=== PATIENT | male | born 1955 | race Caucasian/White ===

== ENCOUNTER 2017-10-05 11:58 | Inpatient (IN) | payer SELFPAY ==
[2017-10-05 12:35] LABS: Actual Bicarbonate (HCO3a) 27.4 mEq/L (22-26); Base Excess (BEa) 4.4 mEq/L (0 (+/-) 2.5); CO2 Tension 35.5 mmHg (35.0-45.0); Calcium, Ionized 1.1 mmol/L (1.12-1.30); Hematocrit-ABG 46.6 % (42.0-52.0); Hemoglobin (Hb) 13.4 g/dL (14.0-18.0); O2 Tension (PaO2) 64.6 mmHg (80.0-100.0); pH, Arterial 7.51 (7.35-7.45)
[2017-10-05 12:36] LABS: Analyzer IN Cardio ER; Puncture Site RRA
[2017-10-05] MEDS ORDERED: Ondansetron HCl/PF 4 MG/2 ML Vial ONE ×2 (12:36→12:55)
--- NOTE | 2017-10-05 12:49 | RAD ---
CHEST ONE VIEW HISTORY: Nausea and vomiting. COMPARISON: Chest one view 12/16/2009. FINDINGS: There are patchy airspace opacities in both lower lobes, worse on the right. No pneumothorax. Cardi ac silhouette and mediastinal contours are within normal limits. Numerous median sternotomy wires. IMPRESSION: Bibasilar pneumonia, worse in the right lower lobe. Follow-up after treatment recommended. POS: [facility]
[2017-10-05 12:51] LABS: Mean Corpuscular HGB CONC 32.1 g/dL (32.0-36.0); Mean Corpuscular Hemoglobin 33.1 pg (27.0-31.0); Mean Platelet Volume 8.5 fL (7.4-10.4); Platelet Count 295 thou/uL (130-400); RBC Distribution Width 11.8 % (11.5-14.5); Red Blood Cell (RBC) Count 4.24 mill/uL (4.70-6.10); White Blood Cell (WBC) Count 11.7 thou/uL (4.8-10.8)
[2017-10-05] MEDS ORDERED: Pantoprazole 40 MG VIAL ONE ×2 (12:55→13:00)
[2017-10-05 12:56] LABS: Band 24 % (5-11); Lymphocytes 18 % (21-51); MDiff Complete? YES; Monocytes 19 % (0-10); Myelocyte 1 % (0-0); Neutrophil 34 % (42-75); PLT Morphology Comment Appears Adequate; Reactive Lymphocytes 4 % (0-10); Toxic Granulation SLIGHT; Vacuoles SLIGHT
[2017-10-05] MEDS ORDERED: Pantoprazole 80 MG, Admixture Fee 1 EACH in Sodium Chloride 0.9% 100 ML IVPB ONE (13:00)
[2017-10-05 13:02] LABS: ALT (SGPT) 153 U/L (8-55); AST (SGOT) 138 U/L (5-34); Albumin 3.3 g/dL (3.4-4.8); Alkaline Phosphatase 87 U/L (40-150); Anion Gap 21 mmol/L (10-20); BUN (Urea Nitrogen) 70 mg/dL (8.4-25.7); Bilirubin, Total 1.8 mg/dL (0.2-1.2); CK (CPK) 21 U/L (30-200); Calc. Creatinine Clearance 0 mL/min (70-130); Calcium 9.9 mg/dL (7.8-10.44); Carbon Dioxide 27 mmol/L (23-31); Chloride 85 mmol/L (98-107); Estimated GFR-MDRD 29; Globulin 3.5 g/dL (2.4-3.5); Glucose 130 mg/dL (80-115); Potassium 3.9 mmol/L (3.5-5.1); Protein, Total 6.8 g/dL (5.8-8.1); Sodium 129 mmol/L (136-145)
[2017-10-05 13:05] LABS: CKMB 0.7 ng/mL (0-6.6); Troponin I 0.029 ng/mL (< 0.028)
[2017-10-05 13:54] LABS: INR-International Normal Ratio 1.3; PTT 30.8 SEC (22.9-36.1); Prothrombin Time 16.9 SEC (12.0-14.7)
[2017-10-05] MEDS ORDERED: Sodium Bicarb 50 MEQ/50 ML Abboject 8.4% SYRINGE ONE ×3 (14:15→22:32)
[2017-10-05 14:33] LABS: ALV-art Gradient 561.125 (0-20); Actual Bicarbonate (HCO3a) 28.7 mEq/L (22-26); Analyzer IN Cardio ER; Base Excess (BEa) 1.2 mEq/L (0 (+/-) 2.5); CO2 Tension 58.7 mmHg (35.0-45.0); Calcium, Ionized 0.8 mmol/L (1.12-1.30); Hematocrit-ABG 42.9 % (42.0-52.0); O2 Tension (PaO2) 82.5 mmHg (80.0-100.0); Puncture Site RRA; pH, Arterial 7.31 (7.35-7.45)
[2017-10-05] MEDS ORDERED: EPINEPHrine 1 MG/10 ML Abboject SYRINGE ONE (15:00)
[2017-10-05] MEDS ORDERED: Sodium Bicarb 5 MEQ/10 ML Abboject 4.2% SYRINGE ONE (15:00)
--- NOTE | 2017-10-05 15:00 | RAD ---
PORTABLE CHEST ONE VIEW: 10/05/2017 2:19 p.m. HISTORY: Respiratory failure. COMPARISON: Exam done at 12:33 p.m. on the same day. FINDINGS: There has been interval placement of an endotracheal tube with the tip at the level of the clavicula heads. The nasogastric tube can be traced into the projection of the distal stomach. Bibasilar infi ltrates are noted. No pneumothoraces or large effusions are seen. POS: [facility]
[2017-10-05 15:14] LABS: Hemoglobin 14.2 g/dL (14.0-18.0)
[2017-10-05 15:14] LABS: Bilirubin Small (Negative); Blood, Urine Small (Negative); Clarity TURBID (Clear); Leukocyte Small (Negative); Nitrite Negative (Negative); pH, Urine 5.5 (5.0-9.0)
[2017-10-05 15:15] LABS: Bacteria/HPF None Seen HPF (None Seen)
[2017-10-05 15:16] LABS: Pathc Cast-AUWi Flag 15.85 (0-2.49); Yeast-AUWi Flag 291.7 (0-25.0)
[2017-10-05 15:18] LABS: Glucose, Urine (Dipstick) Negative (Negative); Protein, Urine (Dipstick) 30 mg/dL (Neg-Trace)
[2017-10-05 15:25] LABS: Crystals/HPF 1+ AMORPH URATES HPF (Negative); Hyaline Casts/LPF 0-3 HYALINE CAST LPF (0-3 Hyaline); Other Casts/LPF 0-3 COARSE GRAN LPF (0-3 Hyaline); Yeast-All Forms None Seen HPF (None Seen)
[2017-10-05 15:26] LABS: Renal Epithelial 0-3 HPF (0-3); Squamous Epithelial 0-3 HPF (0-3); Transitional Epithelial 0-3 HPF (0-3)
[2017-10-05] MEDS ORDERED: CCU Electrolyte Replacement 1 EACH FS ONE (16:19)
[2017-10-05] MEDS ORDERED: Sodium Chloride 0.9% 1,000 ML IV SCH ×2 (16:19→19:30)
[2017-10-05] MEDS ORDERED: Rocuronium Bromide 50 MG/5 ML VIAL IVP PRN (16:19)
[2017-10-05] MEDS ORDERED: Sedation Protocol FS ONE (16:19)
--- NOTE | 2017-10-05 16:21 | CT ---
CT CHEST WITHOUT CONTRAST CT ABDOMEN WITHOUT CONTRAST CT PELVIS WITHOUT CONTRAST 10/05/17 HISTORY: Abdominal pain. COMPARISON: None. FINDINGS: The patient intubated with endotracheal tube tip above the griffin. Enteric tube is in place with tip at the gastric antrum/first portion duodenum. There are extensive tree-in-bud opacities throughout the lungs along with more worsening consolidatio n in the lower lobes. No pneumothorax. Old right posterior fourth rib fracture. 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 No pericardial effusion. Dense coronary artery calcifications. Numerous mediastinal lymph nodes. Righ t paratracheal lymph node measures approximately 1 cm in short axis. There is a large conglomerate of subcarinal lymph nodes. There is a collection of fluid and gas in the right lower and midline pelvis with peritonitis. There are dilated loops of small bowel measuring up to 4.5 cm. There appears to be a calcification in what may be the appendix in the right lower quadrant. This appears to have a connection to the fluid and g as filled extraluminal collection. Nearly the entirety of the small bowel is dilated without a specif ic transition point. Gross catheter is in place. There is inflammation in the right pericolic gutter with small volume free fluid. The large bowel is predominantly collapsed. Small volume free fluid in the pelvic cul-de-sac. IMPRESSION: 1. Perforation likely of the appendix with an appendicolith with extraluminal gas and fluid lena ection. There is subsequent peritonitis and dilated loops of small bowel. Surgical consultation is re commended. 2. Multifocal severe pneumonia. 3. Given the dilated loops of bowel and the peritonitis, an element of hypoperfusion and ischemi a is also within the differential. Code BRENDEN Remy, 3:30 p.m.
--- NOTE | 2017-10-05 16:24 | PDOC.PULCN ---
Pulmonology Consult: HPI - Date of Consult Date: 10/05/17 Time: 16:21 - Consult Details Reason for Consult: Critical Care Mgmt Requesting Physician: ER - History of Present Illness HPI: MIGUEL CANO is a 61 year-old M who was brought to ER by EMS. Patient was intubated by the time I saw him. He can't give history. According to the family I spoke to, the patient has had a viral gastrointestinal type illness since Oct 01. He was so ill that he did not come over for [place]. He told the family he was too weak to talk and that he would be going to the doctor today. Nothing else is known about history. In ER, he vomitted coffee grounds. He was in respiratory distress. Briefly put on Bipap. ER decided to intubate patient and he threw up more coffee grounds during intubation. He had a cardiac arrest twice after intubation, but had ROSC. Pulmonology Consult: ROS - Review of Systems ROS unobtainable: due to endotracheal tube Pulmonology Consult: PMH Source: family, nurse Past Medical History: CAD HTN CABG - Social History Smoking Status: Smoker, status unknown Alcohol Use: occasional, other (heavy in past, according to family) Drug Use History: none Living Situation: independent Pulmonology Consult: Meds - Medications MAR Reviewed: Yes Medications: Current Medications Albuterol/Ipratropium (Duoneb) 3 ml NEB [id number] DYLAN Enoxaparin Sodium (Lovenox) 40 mg SC 0900 DYLAN Hydrocortisone Sodium Succinate (Solu-Cortef) 100 mg IVP Q6HR DYLAN Pantoprazole Sodium 80 mg/Miscellaneous Medication 1 each/ Sodium Chloride 100 mls @ 10 mls/hr IVPB NOW ONE Stop: 10/05/17 22:59 Ascorbic Acid 1,500 mg/ Sodium (Chloride) 53 mls @ 100 mls/hr IVPB Q6HR DYLAN Stop: 10/09/17 18:01 Norepinephrine Bitartrate (Levophed) 250 mls @ 0 mls/hr IVPB INF DYLAN; Titrate PRN Reason: Protocol Piperacillin Sod/Tazobactam (Sod 3.375 gm/ Sodium Chloride) 100 mls @ 200 mls/ hr IVPB Q6HR DYLAN Sodium Chloride (Normal Saline 0.9%) 1,000 mls @ 150 mls/hr IV .[id number] DYLAN Thiamine HCl 200 mg/ Sodium (Chloride) 52 mls @ 100 mls/hr IVPB Q12HR DYLAN Stop: 10/09/17 21:01 Metronidazole 500 mg/ Device 100 mls @ 100 mls/hr IVPB Q6HR DYLAN Miscellaneous Medication (Ccu Electrolyte Replacement) 1 each FS ONE ONE Stop: 10/05/17 16:20 Miscellaneous Medication (Sedation Protocol) 1 each FS ONE ONE Stop: 10/05/17 16:20 Rocuronium [place] (Zemuron) 50 mg IVP Q30MIN PRN PRN Reason: Agitation - Allergies Allergies/Adverse Reactions: Allergies Allergy/AdvReac Type Severity Reaction Status Date / Time No Known Allergies Allergy Unverified 10/05/17 12:59 Pulmonology Consult: PE - Physical Exam Deviation from normal: intubated, not responding to stimuli HEENT: PERRLA, sclera anicteric Neck: no nodes, no JVD Deviation from normal: tachy, no murmur Focused Respiratory Location: rales: Right, Left Deviation from normal: grossly distended and typmpanic Musculoskeletal: no edema Deviation from normal: can't access. pt paralyzed chemically Lymphatic: no nodes Deviation from normal: can't access Skin: no rash Pulmonology Consult: Results - Labs Result Diagrams: 10/05/17 14:19 10/05/17 12:17 Lab results: Laboratory Results WBC 11.7 thou/uL (4.8-10.8) H 10/05/17 12:17 RBC 4.24 mill/uL (4.70-6.10) L 10/05/17 12:17 Hgb 14.2 g/dL (14.0-18.0) 10/05/17 14:19 Hct 42.3 % (42.0-52.0) 10/05/17 14:19 MCV 103.0 fl (80.0-94.0) H 10/05/17 12:17 MCH 33.1 pg (27.0-31.0) H 10/05/17 12: MCHC 32.1 g/dL (32.0-36.0) 10/05/17 12: RDW 11.8 % (11.5-14.5) 10/05/17 12:17 Plt Count 295 thou/uL (130-400) 10/05/17 12:17 MPV 8.5 fL (7.4-10.4) 10/05/17 12:17 Neutrophils % (Manual) 34 % (42-75) L 10/05/17 12:17 Band Neuts % (Manual) 24 % (5-11) H 10/05/17 12:17 Lymphocytes % (Manual) 18 % (21-51) L 10/05/17 12:17 Reactive Lymphs % 4 % (0-10) 10/05/17 12:17 Monocytes % (Manual) 19 % (0-10) H 10/05/17 12:17 Myelocytes % 1 % (0-0) H 10/05/17 12:17 Neutrophils # Not Reportable 10/05/17 12:17 Lymphocytes # Not Reportable 10/05/17 12:17 WBC Morphology SLIGHT 10/05/17 12:17 Toxic Granulation SLIGHT 10/05/17 12:17 Plt Morphology Comment Appears Adequate 10/05/17 12:17 PT 16.9 SEC (12.0-14.7) H 10/05/17 12:17 INR 1.3 10/05/17 12:17 APTT 30.8 SEC (22.9-36.1) 10/05/17 12:17 Specimen Type ARTERIAL 10/05/17 14:30 Puncture Site RRA 10/05/17 14:30 Bicarbonate Actual 28.7 mEq/L (22-26) H 10/05/17 14:30 ABG pH 7.31 (7.35-7.45) L 10/05/17 14:30 ABG pCO2 58.7 mmHg (35.0-45.0) H 10/05/17 14:30 ABG pO2 82.5 mmHg (80.0-100.0) 10/05/17 14:30 ABG O2 Sat Calc/Rishabh 95.3 % (94.0-100.0) 10/05/17 14:30 ABG O2 Content 17.1 vol% (17.5-23.0) L 10/05/17 14:30 ABG Base Excess 1.2 mEq/L (0 (+/-) 2.5) 10/05/17 14:30 ABG Hematocrit 42.9 % (42.0-52.0) 10/05/17 14:30 ABG Hemoglobin 13.0 g/dL (14.0-18.0) L 10/05/17 14:30 ABG Oxyhemoglobin 93.2 % (94.0-97.0) L 10/05/17 14:30 ABG Carboxyhemoglobin 1.5 gm% (0.0-3.0) 10/05/17 14:30 ABG Methemoglobin 0.7 gm% (0.0-1.5) 10/05/17 14:30 ABG Deoxyhemoglobin 4.6 % (0.0-5.0) 10/05/17 14:30 Miguel Test POSITIVE 10/05/17 12:33 A-a O2 Gradient 561.125 (0-20) H 10/05/17 14:30 Sodium 132 mmol/L (135-148) L 10/05/17 14:30 Potassium 3.4 mmol/L (3.70-5.30) L 10/05/17 14:30 Chloride 91 mmol/L (98-106) L 10/05/17 14:30 Ionized Calcium 0.8 mmol/L (1.12-1.30) L 10/05/17 14:30 Mode of Support SIMV/PSV 10/05/17 14:30 % Minute Volume 10.9 L 10/05/17 14:30 Mechanical Rate 20 min 10/05/17 14:30 Inspired O2 100 % 10/05/17 14:30 Tidal Volume 500 ml 10/05/17 14:30 Peak Inspir Pressure 38 cmH2O 10/05/17 14:30 Pressure Support 10 cmH2O 10/05/17 14:30 PEEP or CPAP 5.0 cmH2O 10/05/17 14:30 Sodium 129 mmol/L (136-145) L 10/05/17 12:17 Potassium 3.9 mmol/L (3.5-5.1) 10/05/17 12:17 Chloride 85 mmol/L (98-107) L 10/05/17 12:17 Carbon Dioxide 27 mmol/L (23-31) 10/05/17 12:17 Anion Gap 21 mmol/L (10-20) H 10/05/17 12:17 BUN 70 mg/dL (8.4-25.7) H 10/05/17 12:17 Creatinine 2.32 mg/dL (0.6-1.3) H 10/05/17 12:17 Estimated GFR (MDRD) 29 10/05/17 12:17 Glucose 130 mg/dL (80-115) H 10/05/17 12:17 Lactic Acid 2.7 mmol/L (0.5-2.2) H 10/05/17 12:17 Calcium 9.9 mg/dL (7.8-10.44) 10/05/17 12:17 Total Bilirubin 1.8 mg/dL (0.2-1.2) H 10/05/17 12:17 AST 138 U/L (5-34) H 10/05/17 12:17 ALT 153 U/L (8-55) H 10/05/17 12:17 Alkaline Phosphatase 87 U/L (40-150) 10/05/17 12:17 Creatine Kinase 21 U/L (30-200) L 10/05/17 12:17 CK-MB (CK-2) 0.7 ng/mL (0-6.6) 10/05/17 12:17 Troponin I 0.029 ng/mL (< 0.028) H 10/05/17 12:17 Serum Total Protein 6.8 g/dL (5.8-8.1) 10/05/17 12:17 Albumin 3.3 g/dL (3.4-4.8) L 10/05/17 12:17 Globulin 3.5 g/dL (2.4-3.5) 10/05/17 12:17 Albumin/Globulin Ratio 0.9 g/dL (1.2-2.2) L 10/05/17 12:17 Lipase 4 U/L (8-78) L 10/05/17 12:17 Urine Color Sharee (Yellow) 10/05/17 14:30 Urine Clarity TURBID (Clear) 10/05/17 14:30 Urine pH 5.5 (5.0-9.0) 10/05/17 14:30 Ur Specific Willard 1.020 (1.002-1.036) 10/05/17 14:30 Urine Protein 30 mg/dL (Neg-Trace) H 10/05/17 14:30 Urine Glucose (UA) Negative mg/dL (Negative) 10/05/17 14:30 Urine Ketones Negative mg/dL (Negative) 10/05/17 14:30 Urine Blood Small (Negative) H 10/05/17 14:30 Urine Nitrite Negative (Negative) 10/05/17 14:30 Urine Bilirubin Small (Negative) H 10/05/17 14:30 Urine Urobilinogen 2.0 mg/dL (0.2-1.0) H 10/05/17 14:30 Ur Leukocyte Esterase Small (Negative) H 10/05/17 14:30 Urine RBC 4-6 HPF (0-3) 10/05/17 14:30 Urine WBC 4-6 HPF (0-3) H 10/05/17 14:30 Ur Squamous Epith Cells 0-3 HPF (0-3) 10/05/17 14:30 Ur Transition Epith Cell 0-3 HPF (0-3) 10/05/17 14:30 Ur Renal Epithelial Cell 0-3 HPF (0-3) 10/05/17 14:30 Urine Crystals 1+ AMORPH URATES HPF (Negative) 10/05/17 14:30 Urine Bacteria None Seen HPF (None Seen) 10/05/17 14:30 Hyaline Casts 0-3 HYALINE CAST LPF (0-3 Hyaline) 10/05/17 14:30 Other Casts 0-3 COARSE GRAN LPF (0-3 Hyaline) H 10/05/17 14:30 Urine Yeast None Seen HPF (None Seen) 10/05/17 14:30 Blood Type A POSITIVE 10/05/17 14:35 Antibody Screen NEGATIVE 10/05/17 14:35 Crossmatch See Detail 10/05/17 14:35 - ABG Interpretation Attestation: I reviewed and interpreted this ABG. ABG Results: ABG pH 7.31 (7.35-7.45) L 10/05/17 14:30 ABG pCO2 58.7 mmHg (35.0-45.0) H 10/05/17 14:30 ABG O2 Sat Calc/Rishabh 95.3 % (94.0-100.0) 10/05/17 14:30 ABG Base Excess 1.2 mEq/L (0 (+/-) 2.5) 10/05/17 14:30 Interpretation: metabolic acidosis (and respiratory acidosis) - Radiology Interpretation Chest x-ray Status: image reviewed by me Additional comments: pt has diffuse bilateral infiltrates ETT ok Pulmonology Consult: A/P - Time Time: 50% of the time was spent in coordination of care (as documented) at patient's floor/unit and/or counseling patient. Time with Patient: greater than 50 minutes - Plan Plan: Appendicitis Upper GI bleed hyponatremia Acute renal failure Acute respiratory failure s/p cardiac arrest x 2 Plan: General surgery and GI consults Should be hemodynamically stable enough to go to OR. Currently not needing vasopressors IV ABX - Zosyn and flagyl Thiamine, folate, solu-cortef, Vitamin C Adjusted ventilator Protonix drip enoxoparin for DVT prophylaxis
[2017-10-05] MEDS ORDERED: Potassium Phosphate 12 MMOL in Sodium Chloride 0.9% 250 ML 250 ML IV PRN (16:27)
[2017-10-05] MEDS ORDERED: Potassium Chloride 40 MEQ in Sodium Chloride 0.9% 250 ML 250 ML IVPB PRN (16:27)
[2017-10-05] MEDS ORDERED: Potassium Phosphate 9 MMOL in Sodium Chloride 0.9% 100 ML IVPB PRN (16:27)
[2017-10-05] MEDS ORDERED: Potassium Chloride 20 MEQ TAB PO PRN (16:27)
[2017-10-05] MEDS ORDERED: Potassium Phosphate 15 MMOL in Sodium Chloride 0.9% 250 ML 250 ML IV PRN (16:27)
[2017-10-05] MEDS ORDERED: Magnesium Oxide 400 MG TAB PO PRN ×2 (16:27)
[2017-10-05] MEDS ORDERED: DISCONTINUE PREVIOUS NARCOTIC PAIN MEDICATIONS AND BENZODIAZEPINES FS SCH (16:27)
[2017-10-05] MEDS ORDERED: CCU ELECTROLYTE REPLACEMENT PROTOCOL FS PRN (16:27)
[2017-10-05] MEDS ORDERED: Magnesium 2 GM/NS 0.9% 100 ML 2 GM in Premix Bag 1 BAG IVPB PRN (16:27)
[2017-10-05] MEDS ORDERED: Morphine 4 MG/ML VIAL SLOW IVP PRN (16:30)
[2017-10-05] MEDS ORDERED: PHENYLEPHRINE-NS 100 MCG/ML 10 ML SYRINGE ONE (16:41)
[2017-10-05] MEDS ORDERED: Bupivacaine/Epinephrine 0.25% 30 ML VIAL ONE (16:47)
[2017-10-05] MEDS ORDERED: Fentanyl 100 MCG/2 ML VIAL ONE (16:47)
[2017-10-05 18:59] LABS: Actual Bicarbonate (HCO3a) 31.7 mEq/L (22-26); Base Excess (BEa) 3.3 mEq/L (0 (+/-) 2.5); Calcium, Ionized 1.1 mmol/L (1.12-1.30); Hematocrit-ABG 44.5 % (42.0-52.0); Hemoglobin (Hb) 13.5 g/dL (14.0-18.0)
[2017-10-05 19:00] LABS: CO2 Tension 66.3 mmHg (35.0-45.0); O2 Tension (PaO2) 45.1 mmHg (80.0-100.0); Puncture Site RBRACH
[2017-10-05 19:01] LABS: ALV-art Gradient 587.025 (0-20)
[2017-10-05] MEDS: Multivitamins, Adult 10 ML, Folic Acid 1 MG, Thiamine HCl 100 MG in Dextrose 5 %-0.45 %... IV SCH ×4 (19:41)
[2017-10-05] MEDS: metroNIDAZOLE 500 MG in Premix Bag 1 BAG IVPB SCH ×2 (19:42→23:52)
[2017-10-05] MEDS: Hydrocortisone Sod Succ/PF 100 mg/2 ml Vial IVP SCH ×2 (19:42→23:52)
[2017-10-05] MEDS: Norepinephrine 8 MG/0.9% NS 250 ML IVPB SCH ×2 (19:43→23:51)
--- NOTE | 2017-10-05 19:45 | OP ---
DATE OF PROCEDURE: 10/05/2017 PREOPERATIVE DIAGNOSIS: Ruptured appendicitis. SURGEON: Derek Mills M.D. PROCEDURE PERFORMED: Open appendectomy, drainage of pelvic abscess. INDICATIONS: The patient is a 61-year-old male who presented with a 1-week history of nausea, vomiti ng, and diarrhea, who has multiple medical problems and had aspiration event during attempted intubat ion in the emergency room. He was hypotensive and required a cardiopulmonary resuscitation x2 in the ER. He was resuscitated and is doing better. A CT scan showed a ruptured appendix that was not darian nable to CT drainage. FINDINGS: It was more extensive purulent fluid than had been seen on the CT. The pelvis had an absc ess within it as well as a necrotic appendix. PROCEDURE IN DETAIL: After informed consent from his mother was obtained, the patient was taken to [facility] operating room and he was already intubated with general anesthesia. His abdomen was prepped and draped in the usual fashion. Local anesthesia infiltrated subcutaneously and deep, a transverse righ t lower quadrant incision was performed. The subcu was divided sharply. The fascia was incised in t direction of its fibers and then the muscle was bluntly dissected. The transversalis and peritone um opened transversely with release of foul-smelling purulent fluid. Cultures were obtained. The ap pendix was found and upright about 50 mL of fluid removed that was purulent. The mesoappendix divide d between clamps and tied with 3-0 Vicryl ties. The base of the appendix was doubly ligated with 0 c hromic, then amputated and sent to pathology for further analysis. The mucosa cauterized. Then, the abdomen was irrigated, used a pool sucker down in the pelvis and another 100 mL of purulent fluid fo und. The abdomen was irrigated and irrigation fluid removed. A drain was placed down into the pelvi s and brought out through a separate stab wound. Hemostasis achieved. The peritoneum closed with a running 3-0 Vicryl. The external oblique fascia closed with a running 2-0 Vicryl. Michelle's closed w ith interrupted 3-0 Vicryl, and the skin was loosely approximated and tito were placed between the t ee skin dalton. Sterile bandage applied. The patient tolerated the procedure well, but remains i n critical condition and will be transferred to ICU.
[2017-10-05] MEDS: Piperacillin/Tazobactam 3.375 GM in Sodium Chloride 0.9% 100 ML IVPB SCH ×2 (20:18→23:52)
[2017-10-05] MEDS ORDERED: Diprivan 20 ML ONE (20:59)
--- NOTE | 2017-10-05 21:31 | CON ---
DATE OF CONSULTATION: 10/05/2017 CRITICAL CARE TIME: One hour. HISTORY OF PRESENT ILLNESS: The patient is a 61-year-old male who on talking to his mother and devora chamorro, has a 1-week history of nausea, vomiting, and diarrhea. He lives alone and apparently, he called his mother this morning and told her that he was going to the doctor, Dr. Schneider is his doctor, and ap parently, he sent her over to the emergency room. In the emergency room, he was noted to be diaphore tic and dyspneic and they put him on BiPAP and he was not getting any better, so they decided to intu azra him and during intubation, he vomited a massive amount and aspirated. He then had a code requir ing CPR x2 episodes. They were able to get him back but did give him 3 units of packed cells during this episode. He is now stable per the garnett machine operator. PAST MEDICAL HISTORY: Coronary artery disease, hypertension. PAST SURGICAL HISTORY: Coronary artery bypass graft x3 in 2009. MEDICATIONS: Include aspirin, pravastatin, amlodipine, carvedilol. ALLERGIES: He has no known drug allergies. FAMILY HISTORY: Diabetes and an aneurysm. SOCIAL HISTORY: He drinks beer heavily, dips tobacco, lives alone. He installs floors. PHYSICAL EXAMINATION: VITAL SIGNS: Pulse 105, blood pressure 119/76, his O2 sats 97%. GENERAL: He is sedated. He is intubated on a ventilator. He has an OG tube in place with some coff ee-ground material. LUNGS: Clear. HEART: Regular rate and rhythm. ABDOMEN: Distended, soft. I do not feel any masses. Somewhat obese. EXTREMITIES: Unremarkable. LABORATORY DATA: His sodium is 132, potassium 3.4, chloride 91. His urinalysis showed bilirubin. H is hemoglobin is 13, his white count is 11.7, H&H 14 and 43, platelet count 295. His LFTs are elevat ed. His coags are normal. He had a CT scan of the abdomen and pelvis showing a perforated appendix with local perforation, periappendiceal abscess, appendicolith. ASSESSMENT: Acute appendicitis with local perforation. I discussed possible drainage procedure with the radiologist who said that it was covered by bowel and he could not access it. The patient is no w stable by Critical Care. The plan is an attempted laparoscopic appendectomy, possible open appende ctomy. I have discussed the procedure with his mom and sisters who understand the risk of going to s urgery, but the benefit of trying to get this under control. They understand and give informed conse nt.
[2017-10-05 21:43] LABS: Lactic Acid 1.9 mmol/L (0.5-2.2)
--- NOTE | 2017-10-05 21:47 | PDOC.CNTRL ---
Central Line Procedure Note - Procedure Date: 10/05/17 Time: 21:45 - PreProcedure Diagnosis: Hypotension, needs vasopressors - PostProcedure Diagnosis: same - Anesthesia Anesthesia: Pancuronium - Description Patient tolerated procedure: well Complications: none Procedure in Details: Right IJ inserted via the modified Seldinger technique under sterile conditions. US used for guidance. 3 ports flushed venous blood.
[2017-10-05] MEDS ORDERED: Acetaminophen 650 MG in Premix Bag 1 BAG IVPB PRN (21:51)
[2017-10-05] MEDS: Vasopressin 40 UNIT, Admixture Fee 1 EACH in Sodium Chloride 0.9% 100 ML IV SCH (22:12)
--- NOTE | 2017-10-05 22:15 | RAD ---
AP VIEW OF THE CHEST: 10/05/17 INDICATION: History of central line placement. COMPARISON: Prior exam dated 10/05/17 at 2:19 p.m. FINDINGS: ET tube and gastric catheter unchanged. There is a new right IJ central venous catheter projecting ov er the inferior vena cava/right atrial junction. The parenchymal opacities involving the perihilar re gions have worsened. There are small bilateral pleural effusions now present. No pneumothorax is evid ent. Sternotomy changes are similar. IMPRESSION: 1. New right IJ central venous catheter projecting in the region of the cavoatrial junction. 2. Worsening bilateral perihilar air space consolidation may reflect worsening pneumonia, aspira tion or edema. 3. Small bilateral pleural effusions. 4. ET tube, gastric catheter. POS: [facility]
[2017-10-05 22:28] LABS: Actual Bicarbonate (HCO3a) 29.9 mEq/L (22-26); Base Excess (BEa) -0.9 mEq/L (0 (+/-) 2.5); Hematocrit-ABG 41.4 % (42.0-52.0); Hemoglobin (Hb) 12.6 g/dL (14.0-18.0)
[2017-10-05] MEDS ORDERED: Calcium Gluconate 9.2 MEQ in Sodium Chloride 0.9% 100 ML IVPB SCH (22:45)
[2017-10-05 22:50] LABS: CO2 Tension 86.1 mmHg (35.0-45.0); pH, Arterial 7.16 (7.35-7.45)
[2017-10-05 22:51] LABS: O2 Tension (PaO2) 47.8 mmHg (80.0-100.0); Puncture Site ALINE
--- NOTE | 2017-10-05 22:51 | PRG ---
DATE OF SERVICE: 10/05/2017 This is an additional 120 minutes critical care time. The patient has continued to spiral downwards even after operation earlier this evening for the perfo rated appendix. Main issue has been hypotension and low O2 sats. His chest x-ray shows massive aspiration in both lungs with development of bilateral infiltrates. I first placed a central line so that we can administer vasopressors. Then placed a right radial art l ine. Then followed up with bronchoscopy to remove copious bilious fluid. Fluid was sent for culture . Peritoneal fluid is already growing out gram positive cocci. I met with multiple family members a nd told them that Mr. Deleon's condition is critical and then his prognosis is very poor.
[2017-10-05 22:52] LABS: ALV-art Gradient 558.575 (0-20)
[2017-10-05] MEDS: Sodium Bicarbonate 70 MEQ in Sodium Chloride 0.45% 1,000 ML IV SCH (23:24)
--- NOTE | 2017-10-06 00:52 | OP ---
PROCEDURE: Bronchoscopy. PREOPERATIVE DIAGNOSIS: Massive aspiration. POSTOPERATIVE DIAGNOSES: Massive aspiration. ANESTHESIA: None. DESCRIPTION OF PROCEDURE: An Olympus bronchoscope was placed down the patient's endotracheal tube. There was copious bilious secretions present in the endotracheal tube and main stem bronchi in all se gments bilaterally. This was lavaged with saline and aspirated. Fluid aspirated was very brown in c olor. The procedure did not have any effect on the patient's low O2 sats one way or the other.
--- NOTE | 2017-10-06 01:06 | CON ---
DATE OF CONSULTATION: 10/05/2017 REASON FOR CONSULTATION: Possible GI bleed. HISTORY OF PRESENT ILLNESS: Mr. Deleon is a 61-year-old who is intubated now. History comes from ta roberting to the Critical Care doctor here, talked to the ER doctors and also talked to the ER nurse who talked to the family a little bit as well. Apparently, Mr. Deleon has been feeling bad for several d ays. His mother said that he felt like he had been having a stomach bug or flu since last Sunday. He did not go to his mom's and sisters' on . The mother had been talking to the patient alejandro mcknight and just has been feeling worse each day until he went to the doctor today, and he was transferre d from the doctor's office apparently to the emergency room. It is unclear what doctor's office he w as at. In the emergency room, he complained of cough, runny nose, chills. He was hoarse with laryng itis and had nausea and vomiting. He had another bowel movement in about 3 days. Apparently, in the emergency room, he had some episodes of fairly voluminous brown to coffee-ground emesis. He had no bowel movements. He was also being treated there for possible pneumonia based on a chest x-ray and w as on one-time BiPAP. His labs on presentation had several abnormalities including white count 11.7. However, his hemoglobin was 14, it was 14 and then 19. His sodium was 129, potassium was 3.9, BUN and creatinine were 70 and 2.32, bilirubin 1.8, AST and ALT were 138 and 153. CK was 21. Lipase is 4. Lactic acid is 2.7. Ultimately, I was contacted and recommended that if he was continuing to hav e vomiting that he should have an NG tube placed. It was unclear talking with the nurse whether he w as having coughing out loud, retching or vomiting. He was going to be transferred to the ICU, but be fore that occurred, the patient apparently had a maricruz respiratory failure and had to be intubated. In the emergency room, he coded twice had to begin atropine for asystole, but then came up to the ICU on no pressors whatsoever. A CAT scan was performed before that, which suggested a phlegmon and westley endicolith in the appendix with some early phlegmon changes there. PAST MEDICAL HISTORY: Coronary artery disease with reported prior bypass, hyperlipidemia, hypertensi on. SOCIAL HISTORY: The patient chews tobacco. Denies drug use. Drinks alcohol, apparently he was a he kalie drinker at one point in time, maybe. ALLERGIES: None known. HOME MEDICATIONS: Low-dose aspirin, pravastatin, amlodipine, terbinafine, and carvedilol. PHYSICAL EXAMINATION: VITAL SIGNS: In the emergency room, his blood pressure was in the 80s-90s over 50s with pulse in the 70s did respond to some IV fluids. Presently, his pulse is 104 with blood pressure 119/76. GENERAL: NG tube is in place with coffee-ground like material coming from it. LUNGS: Decreased breath sounds. ABDOMEN: Quiet, distended. NG tube is hooked to suction, and it becomes more soft. RECTAL: Reveals brown stool in the vault. EXTREMITIES: No clubbing, cyanosis, or edema. There is no spider angioma or edema. IMAGING STUDIES: CAT scan films reviewed, with Radiology, with phlegmon in the right lower quadrant. There is some diffuse small bowel prominence consistent with ileus. The stomach was decompressed b y an NG tube. There is an infiltrate in the right lower lung. TREATMENT IN THE ER: He received azithromycin, epi, sodium bicarbonate, rocuronium etomidate, Proton ix, Zofran, DuoNebs, and normal saline, as well as Rocephin. PRESENT MEDICATIONS HERE: Protonix drip, Zosyn, thiamine, multivitamin, folate, electrolyte replacem ent program. ASSESSMENT: 1. Gastrointestinal bleeding. He has normal platelet count, normal INR. LFTs are up. He has no si gns of cirrhosis clinically. I suspect he has been vomiting with either regard to his abdominal illn ess or the flu. He was reportedly having positive flu testing in the emergency room. Otherwise, no signs of acute hemorrhage. His hemoglobin is 14, apparently received 3 units of blood when he threw up some blood in the emergency room. We will see what his hemoglobin is after that, but he shows no signs of acute GI hemorrhage, would continue with IV PPI and NG tube decompression. 2. CAT scan looks like appendicitis. with his history of having pain for several days, it is very possible. 3. Influenza screen is negative for Influenza A and B. 4. He has an infiltrate in the right lung on CAT scan and chest x-ray, it is unclear if this is a pn eumonia or aspiration. RECOMMENDATIONS: 1. IV PPI. 2. Would watch for DTs. 3. Would give him a banana bag with an unclear history of alcohol use and would do that daily. 4. Agree with surgical consultation. I think he is stable from a surgical standpoint. There is no high risk from a standpoint of liver disease. He has good INR, normal platelets. 5. Depending on his hemoglobin, consider endoscopy in the next day or two, but it does not appear th at he has acute GI hemorrhage at this time and may just have either had a Liz-Zamudio tear or acute gastritis or being as sick as he is. 6. Respiratory failure, probably is related to aspiration at the time of induction. It is unclear i f his pneumonia is all aspiration as well. He is intubated presently in ICU. Pulmonary is following the case as well. Would agree with broad-spectrum antibiotics to cover both community-acquired pneu monia and aspiration pneumonia. We will follow along with you.
[2017-10-06] MEDS: Propofol 1,000 MG/100 ML VIAL IV PRN ×2 (02:28→12:16)
[2017-10-06 05:42] LABS: ALT (SGPT) 260 U/L (8-55); AST (SGOT) 354 U/L (5-34); Albumin 2.2 g/dL (3.4-4.8); Alkaline Phosphatase 51 U/L (40-150); Anion Gap 14 mmol/L (10-20); BUN (Urea Nitrogen) 58 mg/dL (8.4-25.7); Bilirubin, Total 2.2 mg/dL (0.2-1.2); Calc. Creatinine Clearance 43 mL/min (70-130); Calcium 7.1 mg/dL (7.8-10.44); Carbon Dioxide 29 mmol/L (23-31); Chloride 99 mmol/L (98-107); Estimated GFR-MDRD 36; Globulin 2.2 g/dL (2.4-3.5); Glucose 94 mg/dL (80-115); Potassium 3.2 mmol/L (3.5-5.1); Protein, Total 4.4 g/dL (5.8-8.1); Sodium 139 mmol/L (136-145)
[2017-10-06] MEDS: Hydrocortisone Sod Succ/PF 100 mg/2 ml Vial IVP SCH ×3 (05:57→17:07)
[2017-10-06] MEDS: metroNIDAZOLE 500 MG in Premix Bag 1 BAG IVPB SCH ×3 (05:57→17:07)
[2017-10-06] MEDS: Piperacillin/Tazobactam 3.375 GM in Sodium Chloride 0.9% 100 ML IVPB SCH ×3 (05:57→18:02)
[2017-10-06] MEDS: Norepinephrine 8 MG/0.9% NS 250 ML IVPB SCH ×2 (06:07→13:47)
[2017-10-06 06:08] LABS: Band 45 % (5-11); Hemoglobin 11.9 g/dL (14.0-18.0); Hypochromia SLIGHT = 6-15 cells (100X) (0-5/hpf); Lymphocytes 4 % (21-51); MDiff Complete? YES; Macrocytosis SLIGHT = 6-15 cells (100X) (0-5/hpf); Mean Corpuscular HGB CONC 31.9 g/dL (32.0-36.0); Mean Platelet Volume 8.2 fL (7.4-10.4); Metamyelocyte 24 % (0-0); Monocytes 5 % (0-10); Myelocyte 1 % (0-0); Neutrophil 20 % (42-75); PLT Morphology Comment Appears Adequate; Platelet Count 172 thou/uL (130-400); RBC Distribution Width 15.9 % (11.5-14.5); Reactive Lymphocytes 1 % (0-10); Red Blood Cell (RBC) Count 3.72 mill/uL (4.70-6.10); Vacuoles SLIGHT; White Blood Cell (WBC) Count 10.6 thou/uL (4.8-10.8)
[2017-10-06] MEDS: Sodium Bicarbonate 70 MEQ in Sodium Chloride 0.45% 1,000 ML IV SCH ×2 (06:41→15:34)
--- NOTE | 2017-10-06 07:26 | PDOC.PULCC ---
CCU Progress Note: Subj/Obj - Subjective Date: 10/06/17 Time: 07:25 Subjective: Slightly improved O2 sats into 90s. Began making urine. Continues to require levophed and vasopressin. Now awake and following commands - Objective Allergies/Adverse Reactions: Allergies Allergy/AdvReac Type Severity Reaction Status Date / Time No Known Allergies Allergy Verified 10/05/17 17:37 Medications: Current Medications Albuterol/Ipratropium (Duoneb) 3 ml NEB [id number] DYLAN Last Admin: 10/06/17 03:19 Dose: 3 ml Enoxaparin Sodium (Lovenox) 40 mg SC 0900 DYLAN Hydrocortisone Sodium Succinate (Solu-Cortef) 100 mg IVP Q6HR DYLAN Last Admin: 10/06/17 05:57 Dose: 100 mg Ascorbic Acid 1,500 mg/ Sodium (Chloride) 53 mls @ 100 mls/hr IVPB Q6HR DYLAN Stop: 10/09/17 18:01 Last Admin: 10/06/17 05:56 Dose: 53 mls Norepinephrine Bitartrate (Levophed) 250 mls @ 0 mls/hr IVPB INF DYLAN; Titrate PRN Reason: Protocol Last Admin: 10/06/17 06:07 Dose: 250 mls Piperacillin Sod/Tazobactam (Sod 3.375 gm/ Sodium Chloride) 100 mls @ 200 mls/ hr IVPB Q6HR DYLAN Last Admin: 10/06/17 05:57 Dose: 100 mls Metronidazole 500 mg/ Device 100 mls @ 100 mls/hr IVPB Q6HR DYLAN Last Admin: 10/06/17 05:57 Dose: 100 mls Fentanyl Citrate 2,000 mcg/ (Sodium Chloride) 100 mls @ 0 mls/hr IV INF DYLAN; Per Protocol PRN Reason: Protocol Stop: 11/04/17 16:27 Fentanyl Citrate (Fentanyl Bolus) 250 mls @ 0 mls/hr IVPB PRN PRN; As Directed PRN Reason: Breakthrough pain Stop: 11/04/17 16:27 Potassium Chloride 40 meq/ (Sodium Chloride) 270 mls @ 135 mls/hr IVPB ASDIR PRN PRN Reason: FOR SERUM K+ 2.5 - 3.5 Potassium Chloride 40 meq/ (Device) 100 mls @ 50 mls/hr IVPB ASDIR PRN PRN Reason: FOR SERUM K+ 2.5 - 3.5 Magnesium Sulfate 1 gm/ Sodium (Chloride) 102 mls @ 102 mls/hr IV PRN PRN PRN Reason: MAG LEVEL 1.4 - 2.0 Magnesium Sulfate 2 gm/ Device 100 mls @ 100 mls/hr IVPB ASDIR PRN PRN Reason: MAGNESIUM < 1.4 Potassium Phosphate 9 mmol/ (Sodium Chloride) 103 mls @ 25.75 mls/hr IVPB ASDIR PRN PRN Reason: Phosphate 1.0-1.8 Potassium Phosphate 12 mmol/ (Sodium Chloride) 254 mls @ 63.5 mls/hr IV ASDIR PRN PRN Reason: Serum phosphate 0.5-0.9 Potassium Phosphate 15 mmol/ (Sodium Chloride) 255 mls @ 63.75 mls/hr IV ASDIR PRN PRN Reason: Serum Phos < 0.5 Multivitamins 10 ml/ Folic Acid 1 mg/ Thiamine HCl 100 mg / Dextrose/Sodium Chloride 1,011.2 mls @ 150 mls/hr IV 1800 DYLAN Last Admin: 10/05/17 19:41 Dose: 1,011.2 mls Vasopressin 40 unit/Miscellaneous Medication 1 each/ Sodium Chloride 102 mls @ 0 mls/hr IV INF DYLAN; As Directed PRN Reason: Protocol Last Admin: 10/05/17 22:12 Dose: 102 mls Acetaminophen 650 mg/ Device 65 mls @ 400 mls/hr IVPB Q6H PRN PRN Reason: Fever > 101 Stop: 10/06/17 21:52 Last Admin: 10/06/17 04:00 Dose: 65 mls Sodium Bicarbonate 70 meq/ (Sodium Chloride) 1,070 mls @ 150 mls/hr IV .Q7H8M DYLAN Last Admin: 10/06/17 06:41 Dose: 1,070 mls Lorazepam (Ativan) 2 mg SLOW IVP Q2H PRN PRN Reason: Anxiety to achieve [place] 2-3 Stop: 11/04/17 16:27 Magnesium Oxide (Magnesium Oxide) 400 mg PO BIDPRN PRN PRN Reason: FOR SERUM MAG 1.4 - 2.0 Magnesium Oxide (Magnesium Oxide) 800 mg PO PRN PRN PRN Reason: FOR SERUM MAG < 1.4 Miscellaneous Medication (Phos-Nak) 1 pkt PO TIDPRN PRN PRN Reason: FOR PHOS LEVEL 1.0 - 1.8 Miscellaneous Medication (Phos-Nak) 2 pkt PO TIDPRN PRN PRN Reason: FOR PHOS LEVEL 0.5 - 1.0 Morphine Sulfate (Morphine) 2 mg SLOW IVP Q2H PRN PRN Reason: Breakthrough pain Stop: 11/04/17 16:27 Discontinue Previous Narcotic Pain Medications And Benzodiazepines 1 each FS .ONE DYLAN Stop: 11/04/17 16:27 Ccu Electrolyte (Replacement Protocol) 0 each FS PRN PRN PRN Reason: FOR ELECTROLYTE REPLACEMENT Potassium Chloride (K-Dur) 40 meq PO ASDIR PRN PRN Reason: FOR SERUM K+ 2.5 - 3.5 Potassium Chloride (Klor-Con) 40 meq PER TUBE ASDIR PRN PRN Reason: FOR SERUM K+ 2.5-3.5 Propofol (Diprivan) 1,000 mg IV INF PRN; Protocol PRN Reason: TO ACHIEVE [place] SCORE 2-3 Stop: 11/04/17 16:27 Last Admin: 10/06/17 02:28 Dose: 1,000 mg Rocuronium [place] (Zemuron) 50 mg IVP Q30MIN PRN PRN Reason: Agitation Sodium Chloride (Flush - Normal Saline) 10 ml IVF Q12HR DYLAN Sodium Chloride (Flush - Normal Saline) 10 ml IVF PRN PRN PRN Reason: Saline Flush MAR Reviewed: Yes Vital Signs and I&O: Vital Signs Temp 99.3 F 10/05/17 23:00 Pulse 111 H 10/06/17 03:19 Resp 22 H 10/06/17 06:00 BP 119/76 10/05/17 16:23 Pulse Ox 90 L 10/06/17 03:19 Intake & Output 10/05/17 10/06/17 10/06/17 18:59 06:59 18:59 Intake Total 6073 Output Total 300 1325 Balance -300 4748 Weight 166 lb 14.239 oz 173 lb 11.588 oz Intake: Intake, IV Amount 6073 Acetaminophen 650 mg In 100 Premix Bag 1 bag @ 400 mls/hr IVPB Q6H PRN Rx#: [id number] Multivitamins, Adult 10 1000 ml Folic Acid 1 mg Thiamine HCl 100 mg In Dextrose 5 %-0.45 % NaCl 1,000 ml @ 150 mls/hr IV 1800 [facility] Rx#:[id number] Norepinephrine 8 MG/0.9% 457 NS 250 ml @ Titrate IVPB INF [facility] Rx#:[id number] Pantoprazole 80 mg 100 Admixture Fee 1 each In Sodium Chloride 0.9% 100 ml @ 10 mls/hr IVPB NOW ONE Rx#:[id number] Propofol 1000 mg (See 23 Protocol) IV INF PRN Rx#: [id number] Sodium Bicarbonate 70 meq 919 In Sodium Chloride 0.45% 1,000 ml @ 150 mls/hr IV .Q7H8M [facility] Rx#:[id number] Sodium Chloride 0.9% 1, 3430 000 ml @ 150 mls/hr IV . Q6H40M [facility] Rx#:[id number] Vasopressin 40 unit 44 Admixture Fee 1 each In Sodium Chloride 0.9% 100 ml @ As Directed IV INF [facility] Rx#:[id number] Output: Gastric Drainage 200 100 Drainage 60 EDITH RT ABD 60 Output, Gross 100 1165 Other: Voiding Method Indwelling Catheter Vent Setting: Bilevel rate 22, PHigh 30, Plow6, 100% Spontaneous Breathing Test: not done Lines (incl Aterial, CVC, PICC+Insertion date): A-line 10/05 Central line 10/05 R IJ CCU Progress Note: Exam - Physical Exam Deviation from normal: intubated HEENT: PERRLA, moist MMs, sclera anicteric Neck: no nodes, no JVD Deviation from normal: sinus tach Focused Respiratory Location: rales: Right, Left Deviation from normal: CXR reviewed by myself shows dense B infiltrates L>R Deviation from normal: post surgical, soft Musculoskeletal: edema present Neurological: moves all 4 limbs Lymphatic: no nodes Deviation from normal: sedated Skin: no rash - Labs Result Diagrams: 10/06/17 05:00 10/06/17 05:00 Lab results: Laboratory Results - last 24 hr 10/05/17 10/05/17 10/05/17 18:51 21:20 22:20 WBC RBC Hgb Hct MCV MCH MCHC RDW Plt Count MPV Neutrophils % (Manual) Band Neuts % (Manual) Lymphocytes % (Manual) Reactive Lymphs % Monocytes % (Manual) Metamyelocytes % (Man) Myelocytes % WBC Morphology Hypochromia Plt Morphology Comment Macrocytosis Specimen Type ARTERIAL ARTERIAL Puncture Site RBRACH NIVIA Bicarbonate Actual 31.7 H 29.9 H ABG pH 7.30 L 7.16 L* ABG pCO2 66.3 H* 86.1 H* ABG pO2 45.1 L* 47.8 L* ABG O2 Sat Calc/Rishabh 75.1 L* 71.6 L* ABG O2 Content 13.9 L 12.4 L ABG Base Excess 3.3 H -0.9 ABG Hematocrit 44.5 41.4 L ABG Hemoglobin 13.5 L 12.6 L ABG Oxyhemoglobin 73.1 L 69.9 L ABG Carboxyhemoglobin 1.8 1.5 ABG Methemoglobin 0.8 0.8 ABG Deoxyhemoglobin 24.3 H 27.8 H A-a O2 Gradient 587.025 H 558.575 H Sodium 135 137 Potassium 3.4 L 3.1 L Chloride 92 L 96 L Ionized Calcium 1.1 L 1.0 L Mode of Support SIMV BI-LEVEL % Minute Volume 11.8 Mechanical Rate 23 23 Inspired O2 100 100 Inspiratory Time 0.60 Tidal Volume 500 535 Peak Inspir Pressure 30 Pressure Support 10 10 PEEP or CPAP 5.0 6.0 Carbon Dioxide Anion Gap BUN Creatinine Estimated GFR (MDRD) Glucose Lactic Acid 1.9 Calcium Total Bilirubin AST ALT Alkaline Phosphatase Serum Total Protein Albumin Globulin Albumin/Globulin Ratio 10/06/17 10/06/17 05:00 05:00 WBC 10.6 RBC 3.72 L Hgb 11.9 L Hct 37.3 L MCV 100.0 H MCH 32.0 H MCHC 31.9 L RDW 15.9 H Plt Count 172 MPV 8.2 Neutrophils % (Manual) 20 L Band Neuts % (Manual) 45 H Lymphocytes % (Manual) 4 L Reactive Lymphs % 1 Monocytes % (Manual) 5 Metamyelocytes % (Man) 24 H Myelocytes % 1 H WBC Morphology SLIGHT Hypochromia SLIGHT = 6-15 cells Plt Morphology Comment Appears Adequate Macrocytosis SLIGHT = 6-15 cells Specimen Type Puncture Site Bicarbonate Actual ABG pH ABG pCO2 ABG pO2 ABG O2 Sat Calc/Rishabh ABG O2 Content ABG Base Excess ABG Hematocrit ABG Hemoglobin ABG Oxyhemoglobin ABG Carboxyhemoglobin ABG Methemoglobin ABG Deoxyhemoglobin A-a O2 Gradient Sodium 139 Potassium 3.2 L Chloride 99 Ionized Calcium Mode of Support % Minute Volume Mechanical Rate Inspired O2 Inspiratory Time Tidal Volume Peak Inspir Pressure Pressure Support PEEP or CPAP Carbon Dioxide 29 Anion Gap 14 BUN 58 H Creatinine 1.88 H Estimated GFR (MDRD) 36 Glucose 94 Lactic Acid Calcium 7.1 L Total Bilirubin 2.2 H AST 354 H ALT 260 H Alkaline Phosphatase 51 Serum Total Protein 4.4 L Albumin 2.2 L Globulin 2.2 L Albumin/Globulin Ratio 1.0 L CCU Progress Note: A/P - Time Spent with Patient Time: 50% of the time was spent in coordination of care (as documented) at patient's floor/unit and/or counseling patient. Time with Patient: greater than 50 minutes - Plan Plan: Appendicitis Upper GI bleed hyponatremia Acute renal failure Acute respiratory failure s/p cardiac arrest x 2 hypokalemia ARDS Septic Shock requiring multiple vasopressors Plan: I will attempt to increase peep on vent. Oxygenation has significantly improved overnight. Attempt to wean vasopressors Add volume (albumin?) d/w family replace K ABX Steroids prognosis guarded
[2017-10-06 07:28] LABS: Actual Bicarbonate (HCO3a) 28.4 mEq/L (22-26); Base Excess (BEa) 1.7 mEq/L (0 (+/-) 2.5); CO2 Tension 54.4 mmHg (35.0-45.0); Hematocrit-ABG 36.4 % (42.0-52.0); Hemoglobin (Hb) 11.5 g/dL (14.0-18.0); O2 Tension (PaO2) 72.5 mmHg (80.0-100.0); pH, Arterial 7.34 (7.35-7.45)
[2017-10-06 07:31] LABS: Puncture Site ALINE
[2017-10-06] MEDS ORDERED: Ondansetron HCl/PF 4 MG/2 ML Vial IVP PRN (07:34)
[2017-10-06] MEDS: Enoxaparin Sodium 40 MG/0.4 ML SYRINGE SC SCH (07:54)
[2017-10-06] MEDS: Lorazepam 2 MG/ML VIAL SLOW IVP PRN (08:04)
[2017-10-06] MEDS: fentaNYL Citrate/PF 2,000 MCG in Sodium Chloride 0.9% 60 ML IV SCH (08:30)
[2017-10-06] MEDS ORDERED: Calcium Gluconate 9.2 MEQ in Sodium Chloride 0.9% 100 ML IVPB SCH (09:00)
--- NOTE | 2017-10-06 09:11 | RAD ---
PORTABLE CHEST ONE VIEW: 10/06/2017 4:01 a.m. HISTORY: Respiratory failure. COMPARISON: Exam from the previous day. FINDINGS: There is mild worsening of the parenchymal opacities. The remainder of the exam is otherwise stable. POS: CARYNH
[2017-10-06] MEDS: Albumin 25% 25 GM/100 ML BOT IVPB SCH ×2 (09:45→17:07)
--- NOTE | 2017-10-06 09:54 | HP ---
DATE OF ADMISSION: 10/05/2017 CHIEF COMPLAINT ON ADMISSION: Ruptured appendix with ileus, aspiration, cardiopulmonary arrest. HISTORY OF PRESENT ILLNESS: Mr. Deleon is a 61-year-old male who apparently been having abdominal pa in for up to a week. He then finally came into the emergency room where he developed nausea, vomitin g, coughing, chills, and become worse. He state his last bowel movement was 3 days ago and he has so me blood when he would cough. With his progressive dyspnea, a BiPAP mask was put on at which time, I was told that he fill the mask full of blood, coughing and vomiting. This brought in Dr. Greenberg who stated that he needed to be stabilized and intubated prior to having his GI tract further evaluated. In the process in the emergency room of intubating him, he filled up 2 large containers of what was thought to be blood, as it turns out, this may have been simply GI contents from an ileus; however, he aspirated in the process of this and ended up going into cardiopulmonary arrest and was resuscitat ed twice. During this process after stabilization, a scan was done of his pelvis and abdomen where bon small was discovered to have a ruptured appendix. At this point, Dr. Mills was called to come in and ope max his belly and cleaned him out. He then went to the OR where this was performed and he has since that time been in ICU, intubated and actually improving. PAST MEDICAL HISTORY: Significant for hyperlipidemia, hypertension and coronary artery disease. PAST SURGICAL HISTORY: Includes coronary artery bypass graft. SOCIAL HISTORY: He only drinks socially and chews tobacco, does not smoke. REVIEW OF SYSTEMS: General: Significant for recent chills, malaise. HEENT: Negative for any probl ems with his eyes. He has had a runny nose and congestion. No trouble swallowing. Chest: Denies chest pain. There is some coughing present. There is some shortness of breath. Abdomen: Extremely tender. He had not had a bowel movement for 3 days. There has been no diarrhea. He did have nausea and vomiting. Musculoskeletal: Denies any muscle pain, joint pain, swelling. Skin: Without rashes or lesions. Neurologic: His mentation has been maintained without complaints of dizziness, headache, blurred vision. ALLERGIES: He has no known drug allergies. MEDICATIONS ON ADMISSION: Include amlodipine 10 mg once a day, aspirin 81 mg a day, carvedilol 12.5 mg b.i.d., pravastatin 40 mg at bedtime, terbinafine powder once a day to apply his feet. PHYSICAL EXAMINATION: VITAL SIGNS: He is intubated and blood pressure is 117/55, temperature 99.9, pulse 115, respirations 31. GENERAL: This is an intubated, sedated male who does open his eyes to verbal stimuli. HEENT: Pupils equal, round, and reactive to light. Intubation tube present in pharynx. No lesions noted. NECK: Supple. CHEST: Good breath sounds bilaterally. HEART: Regular rate and rhythm, tachycardic. ABDOMEN: Soft, surgical scar appears healthy. GENITOURINARY: Normal male. EXTREMITIES: Without clubbing, cyanosis, or edema. SKIN: Without acute rashes or lesions. NEUROLOGICAL: Unable to assess due to sedation. LABORATORY DATA: Lab work thus far shows WBC 10.6, hemoglobin 11.9, hematocrit 37.3, platelets 172. Sodium 139, potassium 3.2, chloride 99, CO2 of 29, BUN 58, creatinine 1.88 with glucose of 94. ABG today shows a pH of 7.34, pCO2 54.4, pO2 of 72.5. ASSESSMENT: 1. Status post laparotomy, postoperative day #1 for ruptured appendix. 2. Aspiration syndrome. 3. Status post cardiopulmonary arrest x2. PLAN: Continue ICU, supportive care. Serial reevaluation. Continue antibiotics and wound care. Th ere is ongoing concern for abscess formation in the belly and this will be serially reevaluated as we ll. Consultations with Pulmonary, Surgery in place and note that I was initially contacted when the patient arrived in the emergency room and began to have significant issues with cardiopulmonary arres t. I requested that I have been notified where the patient ends up and who he would be admitted to a nd I was not recontacted by any person and found the patient in ICU at the time of this dictation. I was not made aware of any progress or his arrival in the ICU at any point in time.
[2017-10-06] MEDS: Vasopressin 40 UNIT, Admixture Fee 1 EACH in Sodium Chloride 0.9% 100 ML IV SCH (10:42)
[2017-10-06] MEDS: Potassium Chloride 40 MEQ in Premix Bag 1 BAG IVPB PRN (12:16)
[2017-10-06] MEDS: Multivitamins, Adult 10 ML, Folic Acid 1 MG, Thiamine HCl 100 MG in Dextrose 5 %-0.45 %... IV SCH ×4 (21:14)
--- NOTE | 2017-10-06 21:36 | PRG ---
DATE OF SERVICE: 10/06/2017 SUBJECTIVE: Mr. Deleon has had some dark liquid suctioned from his NG tube today, but no other evide nce of overt bleeding. His hemoglobin did drop from 14 on presentation down to 11.9 today despite 3 units of transfusion. OBJECTIVE: GENERAL: He is sedated on the ventilator. VITAL SIGNS: Temperature is 99.7, pulse 86, blood pressure 108/43. GENERAL: He is sedated on the vent. LUNGS: His lungs have coarse breath sounds. HEART: Regular rate and rhythm. ABDOMEN: Soft, nondistended. Bowel sounds are present. EXTREMITIES: No lower extremity edema. IMPRESSION: 1. Acute appendicitis, presenting with ileus. He had vomiting and aspiration. He now has respirato ry failure and is being treated with mechanical ventilation. He is status post surgery for the appen dicitis. 2. Possible hematemesis or coffee ground emesis. His hemoglobin did drop, however, is likely very h emoconcentrated when he presented with sepsis. RECOMMENDATIONS: 1. Continue proton pump inhibitor. 2. I will sign off for now. Please call if GI can be of assistance.
[2017-10-07] MEDS: Sodium Bicarbonate 70 MEQ in Sodium Chloride 0.45% 1,000 ML IV SCH ×2 (00:19→06:06)
[2017-10-07] MEDS: Piperacillin/Tazobactam 3.375 GM in Sodium Chloride 0.9% 100 ML IVPB SCH ×5 (00:24→23:04)
[2017-10-07] MEDS: Hydrocortisone Sod Succ/PF 100 mg/2 ml Vial IVP SCH ×5 (00:24→23:04)
[2017-10-07] MEDS: metroNIDAZOLE 500 MG in Premix Bag 1 BAG IVPB SCH ×5 (00:24→23:04)
[2017-10-07] MEDS: Albumin 25% 25 GM/100 ML BOT IVPB SCH ×5 (00:32→23:10)
[2017-10-07 05:06] LABS: ALT (SGPT) 1133 U/L (8-55); AST (SGOT) 1880 U/L (5-34); Albumin 2.7 g/dL (3.4-4.8); Alkaline Phosphatase 61 U/L (40-150); Anion Gap 14 mmol/L (10-20); BUN (Urea Nitrogen) 42 mg/dL (8.4-25.7); Bilirubin, Total 2.6 mg/dL (0.2-1.2); Calc. Creatinine Clearance 56 mL/min (70-130); Calcium 7.4 mg/dL (7.8-10.44); Carbon Dioxide 30 mmol/L (23-31); Chloride 103 mmol/L (98-107); Estimated GFR-MDRD 47; Glucose 163 mg/dL (80-115); Potassium 3.4 mmol/L (3.5-5.1); Protein, Total 4.7 g/dL (5.8-8.1); Sodium 144 mmol/L (136-145)
[2017-10-07 05:27] LABS: Band 50 % (5-11); Eosinophils 1 % (0-10); Hypochromia SLIGHT = 6-15 cells (100X) (0-5/hpf); Lymphocytes 2 % (21-51); MDiff Complete? YES; Mean Corpuscular HGB CONC 31.6 g/dL (32.0-36.0); Mean Platelet Volume 7.6 fL (7.4-10.4); Monocytes 32 % (0-10); Neutrophil 15 % (42-75); PLT Morphology Comment Appears Adequate; Platelet Count 148 thou/uL (130-400); RBC Distribution Width 16.1 % (11.5-14.5); Red Blood Cell (RBC) Count 3.11 mill/uL (4.70-6.10); Toxic Granulation SLIGHT; White Blood Cell (WBC) Count 22.9 thou/uL (4.8-10.8)
[2017-10-07 07:28] LABS: Actual Bicarbonate (HCO3a) 30.9 mEq/L (22-26); Base Excess (BEa) 4.4 mEq/L (0 (+/-) 2.5); CO2 Tension 56.3 mmHg (35.0-45.0); Hemoglobin (Hb) 9.5 g/dL (14.0-18.0); O2 Tension (PaO2) 87.4 mmHg (80.0-100.0); pH, Arterial 7.36 (7.35-7.45)
[2017-10-07 07:29] LABS: ALV-art Gradient 200.225 (0-20); Puncture Site ALINE
[2017-10-07] MEDS: Enoxaparin Sodium 40 MG/0.4 ML SYRINGE SC SCH (07:34)
[2017-10-07] MEDS: Propofol 1,000 MG/100 ML VIAL IV PRN (07:34)
[2017-10-07] MEDS: Potassium Chloride 40 MEQ in Premix Bag 1 BAG IVPB PRN (07:50)
[2017-10-07] MEDS: Vasopressin 40 UNIT, Admixture Fee 1 EACH in Sodium Chloride 0.9% 100 ML IV SCH (07:55)
--- NOTE | 2017-10-07 08:24 | RAD ---
PORTABLE CHEST 1 VIEW: DATE: 10/07/17. TIME: 5:08 a.m. HISTORY: Respiratory failure. FINDINGS: There is mild interval improvement in the bilateral airspace disease since the previous day's exam. The remainder of the exam is otherwise stable. POS: YADIRA
[2017-10-07] MEDS ORDERED: Calcium Gluconate 100 MG/ML 10 ML IVPB SCH (09:45)
[2017-10-07] MEDS: fentaNYL Citrate/PF 2,000 MCG in Sodium Chloride 0.9% 60 ML IV SCH (09:47)
[2017-10-07] MEDS: Lorazepam 2 MG/ML VIAL SLOW IVP PRN (10:07)
[2017-10-07] MEDS ORDERED: Calcium Gluconate 9.2 MEQ in Sodium Chloride 0.9% 100 ML IVPB SCH (10:30)
[2017-10-07] MEDS ORDERED: Furosemide 40 MG/4 ML VIAL SLOW IVP SCH (10:30)
--- NOTE | 2017-10-07 11:22 | PRG ---
DATE OF SERVICE: 10/07/2017 PULMONARY CRITICAL CARE PROGRESS NOTE 35 minutes of critical care time. SUBJECTIVE: The patient remains intubated on mechanical ventilation. He will awaken and follow all commands. PHYSICAL EXAMINATION: VITAL SIGNS: His temperature is 97.7, pulse 78, blood pressure 112/70, O2 sat in the low 90s, 24-bhupinder r intake 6304, output 2705. HEENT: Unremarkable. NECK: No JVD. LUNGS: Coarse breath sounds. CARDIAC: S1, S2 regular. ABDOMEN: Soft, nontender. Surgical scar noted in the right lower quadrant. EXTREMITIES: No clubbing or cyanosis. He has generalized edema. LABORATORY DATA: Sodium 144, potassium 3.4, chloride 103, CO2 30, BUN 42, creatinine 1.5, glucose 16 3, AST 1880, ALT 1133, albumin 2.7. PH 7.36, pCO2 56, pO2 87, that is on bilevel 30/10, FiO2 50%, pr essure support of 15. White blood cell count 22.9, hemoglobin 10, hematocrit 31, platelet count 148. Cultures are growing out gram-positive cocci in pairs in the peritoneal fluid. Chest x-ray shows i mproved bilateral infiltrates. ASSESSMENT: 1. Acute respiratory failure requiring mechanical ventilation. 2. Status post ruptured appendix with subsequent peritonitis. 3. Hyponatremia has improved. 4. Acute renal failure, which is improving. 5. Status post cardiac arrest x2 in the ER. 6. Acute respiratory distress syndrome from massive aspiration during intubation. 7. Septic shock, which has improved. PLAN: 1. Continue vasopressor, but wean as tolerated. 2. Not weanable at this time. 3. Continue antibiotics. 4. Wean steroids. 5. Consider TPN in the next couple of days if okay with General Surgery.
[2017-10-07] MEDS: Sodium Chloride 0.45% 1,000 ML IV SCH (11:37)
[2017-10-07 11:38] LABS: ALV-art Gradient 248.025 (0-20); Base Excess (BEa) 5.3 mEq/L (0 (+/-) 2.5); CO2 Tension 45.1 mmHg (35.0-45.0); Hematocrit-ABG 29.8 % (42.0-52.0); Hemoglobin (Hb) 9.5 g/dL (14.0-18.0); O2 Tension (PaO2) 54.6 mmHg (80.0-100.0); Puncture Site ALINE; pH, Arterial 7.44 (7.35-7.45)
[2017-10-07] MEDS ORDERED: Activase 2 MG VIAL CATH SCH (11:57)
[2017-10-07] MEDS ORDERED: Sterile Water 10 ML VIAL IVP SCH (11:57)
[2017-10-08] MEDS: Piperacillin/Tazobactam 3.375 GM in Sodium Chloride 0.9% 100 ML IVPB SCH ×3 (05:18→18:30)
[2017-10-08] MEDS: metroNIDAZOLE 500 MG in Premix Bag 1 BAG IVPB SCH ×2 (05:18→11:54)
[2017-10-08] MEDS: Albumin 25% 25 GM/100 ML BOT IVPB SCH (05:27)
[2017-10-08] MEDS: Propofol 1,000 MG/100 ML VIAL IV PRN ×2 (05:27→15:53)
[2017-10-08 05:37] LABS: ALT (SGPT) 565 U/L (8-55); AST (SGOT) 312 U/L (5-34); Albumin 3.3 g/dL (3.4-4.8); Alkaline Phosphatase 84 U/L (40-150); Anion Gap 15 mmol/L (10-20); BUN (Urea Nitrogen) 39 mg/dL (8.4-25.7); Calc. Creatinine Clearance 70 mL/min (70-130); Calcium 8.5 mg/dL (7.8-10.44); Carbon Dioxide 33 mmol/L (23-31); Chloride 104 mmol/L (98-107); Estimated GFR-MDRD 59; Glucose 111 mg/dL (80-115); Protein, Total 5.3 g/dL (5.8-8.1); Sodium 149 mmol/L (136-145)
[2017-10-08 05:40] LABS: Potassium 2.7 mmol/L (3.5-5.1)
[2017-10-08] MEDS: Hydrocortisone Sod Succ/PF 100 mg/2 ml Vial IVP SCH ×2 (05:45→11:55)
[2017-10-08] MEDS: Potassium Chloride 40 MEQ in Premix Bag 1 BAG IVPB PRN ×4 (05:45→14:13)
[2017-10-08 06:11] LABS: Band 41 % (5-11); Hemoglobin 10.1 g/dL (14.0-18.0); Lymphocytes 5 % (21-51); MDiff Complete? YES; Mean Corpuscular HGB CONC 30.9 g/dL (32.0-36.0); Mean Corpuscular Hemoglobin 31.3 pg (27.0-31.0); Mean Platelet Volume 7.7 fL (7.4-10.4); Metamyelocyte 2 % (0-0); Monocytes 2 % (0-10); Neutrophil 50 % (42-75); PLT Morphology Comment Appears Adequate; Platelet Count 162 thou/uL (130-400); RBC Distribution Width 15.7 % (11.5-14.5); Red Blood Cell (RBC) Count 3.22 mill/uL (4.70-6.10); White Blood Cell (WBC) Count 29.9 thou/uL (4.8-10.8)
[2017-10-08 08:16] LABS: Actual Bicarbonate (HCO3a) 33.5 mEq/L (22-26); Base Excess (BEa) 8.6 mEq/L (0 (+/-) 2.5); CO2 Tension 48.3 mmHg (35.0-45.0); Calcium, Ionized 1.1 mmol/L (1.12-1.30); Hematocrit-ABG 29.8 % (42.0-52.0); Hemoglobin (Hb) 9.7 g/dL (14.0-18.0); O2 Tension (PaO2) 68.9 mmHg (80.0-100.0); pH, Arterial 7.46 (7.35-7.45)
[2017-10-08 08:18] LABS: Puncture Site ALINE
[2017-10-08 08:19] LABS: ALV-art Gradient 343.275 (0-20)
[2017-10-08] MEDS: Enoxaparin Sodium 40 MG/0.4 ML SYRINGE SC SCH (08:39)
[2017-10-08] MEDS: Sodium Chloride 0.45% 1,000 ML IV SCH (08:45)
[2017-10-08] MEDS ORDERED: Pancrelipase DR 12000 1 CAP FS PRN (10:29)
[2017-10-08] MEDS ORDERED: Sodium Bicarbonate Tab 325 MG TAB PER TUBE PRN (10:29)
[2017-10-08 11:34] LABS: Potassium 2.9 mmol/L (3.5-5.1)
[2017-10-08] MEDS ORDERED: Labetalol HCl 100 MG/20 ML VIAL SLOW IVP PRN (14:03)
--- NOTE | 2017-10-08 14:32 | PRG ---
DATE OF SERVICE: 10/08/2017 SERVICE: Pulmonary Medicine. INTERVAL HISTORY: The patient is doing okay from a respiratory standpoint. Oxygen requirements have improved a little bit. He cannot provide any additional elements of the history because of sedation is still heavy. Otherwise, there has been no interval changes in his condition. Nursing reports no overnight events other than an episode of atrial fibrillation. PHYSICAL EXAMINATION: VITAL SIGNS: Afebrile, pulse 79, blood pressure 129/67, respiration 22, saturation 97% on 50% FIO2, and PEEP of 8, which is new. HEENT: Normocephalic, atraumatic. Sclerae are white, conjunctivae pink. Oral mucosa moist without lesions. LUNGS: Decent air entry. Crackles are present. HEART: Normal rate, regular. ABDOMEN: Distended. Tender to palpation throughout without significant rebound or guarding. There is absent bowel sounds. MUSCULOSKELETAL: No cyanosis or clubbing. He has got diffuse trace to 1+ pitting, but he has 2+ pit ting at the sacrum. GENITOURINARY: Gross catheter in place. NEUROLOGIC: Grossly nonfocal. He moves all 4 extremities and has appropriate grimace. LABORATORY DATA: WBC 29.9, hemoglobin 10.1, platelets 162,000. Band count is decreasing to 41%. IN R 1.3. PH 7.46, pCO2 of 48, pO2 of 68 on bilevel. Potassium 2.9. Basic metabolic profile is otherw ise unremarkable. AST and ALT are downtrending nicely. Creatinine 1.24 downtrending as well. Sodiu m 149. Urinalysis is unremarkable. Peritoneal fluid is growing a gram negative kash and there is als o gram positive grind growing out of 1 of 2 blood cultures. Influenza A and B is unremarkable. Bron chioalveolar lavage is growing multiple organisms, but the isolation is currently in process. Of not e, there are gram positive cocci in pairs and clusters. IMAGING: Chest x-ray demonstrates a left lower lobe pleural parenchymal opacification. Outside of t hat, I do not appreciate any acute cardiopulmonary abnormality. Possible layering pleural effusion o n the right. Endotracheal tube is in decent position. Enteric catheter courses well below the level of the diaphragm. There is a right-sided IJ, which is in the right atrium. ASSESSMENT: 1. Septic shock. 2. Acute hypoxic respiratory failure. 3. Gross peritonitis secondary to ruptured appendix. 4. Hypernatremia. 5. Acute kidney injury, resolving. 6. Cardiac arrest x2 in the emergency department. 7. Healthcare-associated pneumonia secondary to gross aspiration. PLAN: We will continue our empiric antibiotics and steroids. The patient's blood pressure has actua lly improved dramatically over the last 24 hours. We will wean away oxygen as tolerated. A dose of Lasix will be provided. Potassium will be replaced and I will initiate him on a touch of free water. At this point, it is too early to feed the patient. If in another 4 days, the patient is still not able to tolerate enteral nutrition, TPN may need to be considered. Critical Care will continue to rukhsana hinson while the patient remains in this location. I will take him off of bilevel and see if he tolerates pressure-controlled ventilation. Critical care time: 30 minutes.
--- NOTE | 2017-10-08 14:50 | RAD ---
RADIOGRAPH CHEST 1 VIEW: Date: 10/08/17. Time: 4:59 a.m. HISTORY: A 61-year-old male in respiratory failure. COMPARISON: 10/07/17 at 5:08 a.m. FINDINGS: No change in life support lines. Previously described bilateral interstitial and airspace densities heterogeneously distributed, remain. Bilateral pleural effusions. No interval change overall. IMPRESSION: 1. No interval change. 2. Bilateral pleural effusions. 3. Bilateral mixed interstitial and alveolar pulmonary opacities, mostly alveolar. CHACHA [] POS: YADIRA
[2017-10-08] MEDS ORDERED: Furosemide 20 MG/2 ML VIAL SLOW IVP SCH (15:00)
[2017-10-08] MEDS: Potassium Chloride 40 MEQ in Premix Bag 1 BAG IVPB SCH ×3 (15:52→17:32)
[2017-10-08] MEDS ORDERED: Sodium Chloride 38.44 MEQ in Sterile Water Injection 990.39 ML IV SCH (16:15)
[2017-10-08] MEDS: Dextrose 5% in Water 1,000 ML IV SCH (17:24)
--- NOTE | 2017-10-08 17:31 | PRG ---
DATE OF SERVICE: 10/08/2017 ATTENDING PHYSICIAN: Dr. Derek Mills. SUBJECTIVE: Mr. Deleon is a 61-year-old male, who was admitted to the ICU with acute respiratory failure requiring mechanical ventilation. He was also noted to have a ruptured appendix and peritonitis and was taken to the operating room by Dr. Mills for an appendectomy. He is now postoperative day #3 from an open appendectomy. He has not had return of bowel function. EDITH drain remains in place to the right lower quadrant. OBJECTIVE: VITAL SIGNS: Temperature 99.5, blood pressure 130/67, pulse 87, respirations 17. The patient is on mechanical ventilation. CONSTITUTIONAL: Critically ill male, who is mechanically ventilated and sedated in the ICU. ABDOMEN: Soft. EDITH drain to right lower quadrant with serosanguineous drainage. Right lower quadrant surgical incision closed with dalton. Kaushal remain in place between dalton. Dressing over the incision. Serous drainage noted. Bowel sounds are hypoactive. ASSESSMENT: 1. Postop day #3, status post open appendectomy. 2. EDITH drain, right lower quadrant with serosanguineous output. 3. No return of bowel function. PLAN: 1. Continue n.p.o. status until bowel function begins to return. 2. Continue to monitor and record EDITH drain output. This patient was reviewed with Dr. Mills, who agrees with the assessment and plan. We will continue to follow for routine postoperative care. [facility]
[2017-10-09] MEDS: Piperacillin/Tazobactam 3.375 GM in Sodium Chloride 0.9% 100 ML IVPB SCH ×5 (00:01→23:54)
[2017-10-09] MEDS: fentaNYL Citrate/PF 2,000 MCG in Sodium Chloride 0.9% 60 ML IV SCH (00:37)
[2017-10-09] MEDS: hydrALAZINE 20 MG/ML VIAL SLOW IVP PRN (03:24)
[2017-10-09 04:31] LABS: AST (SGOT) 98 U/L (5-34); Albumin 3.1 g/dL (3.4-4.8); Alkaline Phosphatase 104 U/L (40-150); Anion Gap 13 mmol/L (10-20); BUN (Urea Nitrogen) 41 mg/dL (8.4-25.7); Bilirubin, Total 2.6 mg/dL (0.2-1.2); Calc. Creatinine Clearance 79 mL/min (70-130); Calcium 8.4 mg/dL (7.8-10.44); Carbon Dioxide 33 mmol/L (23-31); Chloride 108 mmol/L (98-107); Estimated GFR-MDRD 67; Globulin 2.3 g/dL (2.4-3.5); Glucose 126 mg/dL (80-115); Potassium 3.7 mmol/L (3.5-5.1); Protein, Total 5.4 g/dL (5.8-8.1); Sodium 150 mmol/L (136-145)
[2017-10-09 04:32] LABS: ALT (SGPT) 344 U/L (8-55)
[2017-10-09 05:08] LABS: Hemoglobin 10.8 g/dL (14.0-18.0); Mean Corpuscular HGB CONC 30.2 g/dL (32.0-36.0); Mean Corpuscular Hemoglobin 30.8 pg (27.0-31.0); Mean Platelet Volume 7.9 fL (7.4-10.4); Platelet Count 192 thou/uL (130-400); RBC Distribution Width 15.6 % (11.5-14.5); Red Blood Cell (RBC) Count 3.51 mill/uL (4.70-6.10); White Blood Cell (WBC) Count 40.8 thou/uL (4.8-10.8)
[2017-10-09] MEDS: Propofol 1,000 MG/100 ML VIAL IV PRN ×3 (05:29→22:13)
[2017-10-09 05:30] LABS: Band 27 % (5-11); Lymphocytes 5 % (21-51); MDiff Complete? YES; Metamyelocyte 1 % (0-0); Monocytes 6 % (0-10); Myelocyte 2 % (0-0); Neutrophil 59 % (42-75); PLT Morphology Comment Appears Adequate
[2017-10-09] MEDS: Dextrose 5% in Water 1,000 ML IV SCH ×3 (05:31→22:05)
[2017-10-09] MEDS ORDERED: Furosemide 20 MG/2 ML VIAL SLOW IVP SCH (06:00)
[2017-10-09 07:54] LABS: Actual Bicarbonate (HCO3a) 33.5 mEq/L (22-26); Base Excess (BEa) 7.8 mEq/L (0 (+/-) 2.5); CO2 Tension 52.8 mmHg (35.0-45.0); Calcium, Ionized 1.2 mmol/L (1.12-1.30); Hematocrit-ABG 32.8 % (42.0-52.0); O2 Tension (PaO2) 52.3 mmHg (80.0-100.0); pH, Arterial 7.42 (7.35-7.45)
[2017-10-09 08:17] LABS: Puncture Site ALINE
--- NOTE | 2017-10-09 08:18 | PRG ---
DATE OF SERVICE: 10/09/2017 SUBJECTIVE: The patient remains intubated on the vent. He is on IV sedatives, as well as IV fluids and IV antibiotics. PHYSICAL EXAMINATION: VITAL SIGNS: Blood pressure 115/60, pulse 70, respirations 20, temperature 97.8. NECK: Supple. JVP cannot be assessed. COR: Regular rate and rhythm. CHEST: A few scattered wheezing and crackles. ABDOMEN: Soft, no absent bowel sounds. EXTREMITIES: No edema. He had palpable pedal pulses. SKIN: There is no evidence of ulcers lesion, or rash. NEUROLOGIC: He is sedated. LABORATORY DATA: White blood cells 40.8, H&H is 10.8 and 35.7, platelets 192. ASSESSMENT: 1. Respiratory failure on the vent. 2. Status post appendectomy. 3. Peritonitis. 4. Acute renal failure, improving. 5. Status post cardiac arrest in the ER. 6. Septic shock, which has improved. PLAN: We will follow up with a CBC, CMP and chest x-ray in the morning.
[2017-10-09] MEDS: Enoxaparin Sodium 40 MG/0.4 ML SYRINGE SC SCH (08:38)
[2017-10-09] MEDS ORDERED: Lacri-Lube Opth Oint 3.5 GM TUBE EA EYE PRN (10:18)
--- NOTE | 2017-10-09 10:24 | PRG ---
DATE OF SERVICE: 10/09/2017 SERVICE: Pulmonary Medicine INTERVAL HISTORY: The patient is doing okay from a respiratory standpoint. His pO2 was a little bit low this morning. As such we went up on his oxygen a touch this morning. He cannot provide any add itional elements of the history because he is requiring heavy sedation. Otherwise, there has been no interval change in his condition. There were no significant fevers or overnight events. His gut is still not working. PHYSICAL EXAMINATION: VITAL SIGNS: Afebrile, pulse 84, blood pressure 133/72, respirations 20, saturation 91% on 55% FiO2 and a PEEP of 8. GENERAL: The patient is intubated and sedated. HEENT: Normocephalic, atraumatic. Sclerae are white, conjunctivae pink. Oral mucosa is moist witho ut lesions. LUNGS: Decent air entry. There are some dependent crackles present. Rhonchi are also there. I do not appreciate much in the way of wheezing, though he does have a prolonged expiratory phase. HEART: Normal rate, regular. ABDOMEN: Soft. Distended. He grimaces with palpation. No rebound or guarding is evident. MUSCULOSKELETAL: No cyanosis or clubbing. His legs do not have any pitting, but he does have 1+ sac ral pitting as well as scrotal edema. : Gross catheter in place. NEUROLOGIC: Grossly nonfocal. LABORATORY: WBC 41,000, hemoglobin 10.8, platelets 192,000. Band count is actually improving to 27% and the monocyte count is responding nicely. INR 1.3. PH 7.42, pCO2 of 53, pO2 52 corresponding to his saturation of 88%. Potassium 3.7, sodium 150. Chloride 108, bicarbonate 33. AST and ALT as we ll as total bilirubin are all down trending nicely. Multiple species are growing out of the bronchia l alveolar lavage. Pseudomonas aeruginosa is growing in the peritoneal fluid which is pansensitive t o just about everything. Blood culture is growing gram positive kash in 1 out of 2. The other is rafaela rile. ASSESSMENT: 1. Septic shock, improving. 2. Acute hypoxic respiratory failure. 3. Peritonitis secondary to ruptured appendix. 4. Hypernatremia, stable. 5. Acute kidney injury, resolving. 6. Cardiac arrest x2 in the emergency department. 7. Healthcare-associated pneumonia secondary to gross aspiration. 8. Leukocytosis, likely getting ahead of his inflammation profile. PLAN: We will continue our antibiotics, steroids, and nebulized medications. I think that the patie nt's white blood cell count is increasing simply because he is catching up to his inflammation profil e. That being said, we will go ahead and broaden out our antibiotic coverage to include antifungals. We will continue our free water for an additional 24 hours. Potassium will be replaced. We will s top watching ABGs. He remains volume overloaded, so we will continue our diuretics as tolerated. Th e patient remains critically ill. That being said, he seems to be moving slowly in the right directi on. As such, supportive measures will be continued. A couple of small ventilator adjustments have b een made in order to optimize comfort. Critical care time: 30 minutes.
[2017-10-09] MEDS ORDERED: Potassium Chloride 40 MEQ in Premix Bag 1 BAG IVPB SCH (11:30)
[2017-10-09] MEDS: Micafungin 100 MG in Sodium Chloride 0.9% 100 ML IVPB SCH (12:06)
[2017-10-09] MEDS: Furosemide 20 MG/2 ML VIAL SLOW IVP SCH (13:30)
[2017-10-10] MEDS: Propofol 1,000 MG/100 ML VIAL IV PRN ×3 (04:41→17:01)
[2017-10-10] MEDS: Piperacillin/Tazobactam 3.375 GM in Sodium Chloride 0.9% 100 ML IVPB SCH ×2 (05:17→11:33)
[2017-10-10] MEDS: Furosemide 20 MG/2 ML VIAL SLOW IVP SCH (05:17)
[2017-10-10 05:18] LABS: ALT (SGPT) 214 U/L (8-55); AST (SGOT) 49 U/L (5-34); Albumin 2.6 g/dL (3.4-4.8); Alkaline Phosphatase 96 U/L (40-150); Anion Gap 14 mmol/L (10-20); BUN (Urea Nitrogen) 35 mg/dL (8.4-25.7); Bilirubin, Total 1.9 mg/dL (0.2-1.2); Calc. Creatinine Clearance 86 mL/min (70-130); Calcium 8.4 mg/dL (7.8-10.44); Carbon Dioxide 33 mmol/L (23-31); Chloride 108 mmol/L (98-107); Estimated GFR-MDRD 74; Globulin 2.9 g/dL (2.4-3.5); Glucose 143 mg/dL (80-115); Potassium 3.6 mmol/L (3.5-5.1); Protein, Total 5.5 g/dL (5.8-8.1); Sodium 151 mmol/L (136-145)
[2017-10-10 06:50] LABS: Band 12 % (5-11); Eosinophils 2 % (0-10); Hemoglobin 11.8 g/dL (14.0-18.0); Hypochromia SLIGHT = 6-15 cells (100X) (0-5/hpf); Lymphocytes 15 % (21-51); MDiff Complete? YES; Macrocytosis MODERATE=16-30 cells (100X) (0-5/hpf); Mean Corpuscular HGB CONC 30.5 g/dL (32.0-36.0); Mean Corpuscular Hemoglobin 31.6 pg (27.0-31.0); Mean Platelet Volume 7.9 fL (7.4-10.4); Metamyelocyte 4 % (0-0); Monocytes 5 % (0-10); Neutrophil 62 % (42-75); PLT Morphology Comment Appears Adequate; Platelet Count 179 thou/uL (130-400); RBC Distribution Width 15.5 % (11.5-14.5); Red Blood Cell (RBC) Count 3.73 mill/uL (4.70-6.10); White Blood Cell (WBC) Count 37.1 thou/uL (4.8-10.8)
[2017-10-10] MEDS: Dextrose 5% in Water 1,000 ML IV SCH ×2 (08:28→16:41)
[2017-10-10] MEDS: Enoxaparin Sodium 40 MG/0.4 ML SYRINGE SC SCH (08:30)
--- NOTE | 2017-10-10 08:52 | RAD ---
PORTABLE CHEST: HISTORY: Respiratory distress. COMPARISON: 10/08/2017 FINDINGS: Endotracheal and NG tubes, as well as right-sided central line are all unchanged in position. Inters titial and alveolar lung changes are fairly similar to the prior exam. IMPRESSION: Stable chest. POS: YADIRA
[2017-10-10 10:54] LABS: Actual Bicarbonate (HCO3a) 34.2 mEq/L (22-26); Base Excess (BEa) 7.8 mEq/L (0 (+/-) 2.5); CO2 Tension 57.2 mmHg (35.0-45.0); Calcium, Ionized 1.2 mmol/L (1.12-1.30); Hematocrit-ABG 36.5 % (42.0-52.0); Hemoglobin (Hb) 11.5 g/dL (14.0-18.0); O2 Tension (PaO2) 61.5 mmHg (80.0-100.0)
[2017-10-10 10:55] LABS: Puncture Site RRA
[2017-10-10] MEDS ORDERED: Potassium Chloride 40 MEQ in Premix Bag 1 BAG IVPB SCH (11:00)
[2017-10-10] MEDS: Micafungin 100 MG in Sodium Chloride 0.9% 100 ML IVPB SCH (11:33)
--- NOTE | 2017-10-10 13:03 | PRG ---
DATE OF SERVICE: 10/10/2017 SERVICE: Pulmonary Medicine INTERVAL HISTORY: The patient is doing poorly from a respiratory standpoint. Oxygen requirements ar e going up. This is occurring despite the fact that he has been negative in volume over the last 24 hours. He cannot provide any additional elements of the history. Otherwise, there has been no inter hawa change to his condition. PHYSICAL EXAMINATION: VITAL SIGNS: Afebrile with a T-max of 99.7, pulse 81, blood pressure 110/57, respirations 33, satura tion 92% on 60% FIO2 and a PEEP of 16. GENERAL: The patient is intubated and sedated. HEENT: Normocephalic, atraumatic. Sclerae are white, conjunctivae pink. Oral and nasal mucosa is m oist without lesions. LUNGS: Decent air entry. Crackles are present. There is a prolonged expiratory phase within the ex piratory wheezing. HEART: Normal rate. Regular. ABDOMEN: Soft. Tender to palpation throughout. Bowel sounds are inactive. There is no guarding. MUSCULOSKELETAL: No cyanosis or clubbing. There is trace pitting in the bilateral lower extremities . There is persistent 1-2+ pitting in the sacral region. : Gross catheter in place. NEUROLOGIC: Grossly nonfocal. LABORATORY DATA: WBC 37.1 and downtrending, hemoglobin 11.8 and stable, platelets 197,000. Bands co unt has significantly improved to 12%. Lymphocyte count is 15% and rebounding. INR 1.3. Sodium 151 , potassium 3.6, chloride 108. Total bilirubin 1.9 and downtrending, AST and ALT are both improving. Potassium 3.6. Bronchioalveolar lavage from a couple of days growing multiple organisms. The more recent respiratory culture has significant amounts of yeast in it. Peritoneal fluid is growing Pseu domonas, which is pansensitive. One out of two blood cultures is growing a contaminant. IMAGING: Chest x-ray demonstrates a significant worsening in the alveolar airspace opacifications in the bilateral lung alston. It is particularly worse on the left. I do not appreciate any significa nt pleural effusions. Endotracheal tube and right-sided IJ are both stable. Sternotomy wires are again identified. ASSESSMENT: 1. Septic shock, resolving. 2. Acute hypoxic respiratory failure. 3. Adult respiratory distress syndrome, suspected. 4. Peritonitis secondary to ruptured appendix. 5. Community-acquired pneumonia secondary to gross aspiration event. 6. Hypernatremia, stable. 7. Acute kidney injury, resolved. 8. Cardiac arrest x2 in the Emergency Department. 9. Leukocytosis, improving. PLAN: We will continue our empiric antibiotics. I will switch over the ventilator to comply with [facility] protocol given that the patient is having increasing space ventilation, and stiffening of the lungs. This despite the fact that we have successfully pulled fluid off over the last 24-48 hour s. He remains critically ill and there is a possibility that his lung function will further deterior ate. Supportive care will otherwise be continued. Critical care time: 30 minutes.
[2017-10-10] MEDS: Piperacillin-Tazo-Dextrose,Iso 3.375 GM in Premix Bag 1 BAG IVPB SCH (17:33)
[2017-10-11] MEDS: Piperacillin-Tazo-Dextrose,Iso 3.375 GM in Premix Bag 1 BAG IVPB SCH ×4 (00:02→17:41)
[2017-10-11] MEDS: Propofol 1,000 MG/100 ML VIAL IV PRN ×3 (00:45→13:34)
[2017-10-11 05:26] LABS: Anion Gap 12 mmol/L (10-20); BUN (Urea Nitrogen) 29 mg/dL (8.4-25.7); Calc. Creatinine Clearance 103 mL/min (70-130); Calcium 8.2 mg/dL (7.8-10.44); Carbon Dioxide 34 mmol/L (23-31); Chloride 105 mmol/L (98-107); Estimated GFR-MDRD Greater than 90; Glucose 134 mg/dL (80-115); Magnesium 1.7 mg/dL (1.6-2.6); Phosphorus 2.8 mg/dL (2.3-4.7); Potassium 3.9 mmol/L (3.5-5.1); Sodium 147 mmol/L (136-145)
[2017-10-11 05:46] LABS: Band 8 % (5-11); Hemoglobin 11.1 g/dL (14.0-18.0); Lymphocytes 5 % (21-51); MDiff Complete? YES; Mean Corpuscular HGB CONC 31.2 g/dL (32.0-36.0); Mean Platelet Volume 8.5 fL (7.4-10.4); Monocytes 3 % (0-10); Myelocyte 4 % (0-0); Neutrophil 80 % (42-75); Platelet Count 154 thou/uL (130-400); RBC Distribution Width 15.5 % (11.5-14.5); Red Blood Cell (RBC) Count 3.46 mill/uL (4.70-6.10); Toxic Granulation SLIGHT; White Blood Cell (WBC) Count 28.1 thou/uL (4.8-10.8)
[2017-10-11] MEDS ORDERED: Furosemide 20 MG/2 ML VIAL SLOW IVP SCH ×2 (06:00→18:00)
[2017-10-11] MEDS: Dextrose 5% in Water 1,000 ML IV SCH ×2 (08:28→11:34)
[2017-10-11] MEDS: Enoxaparin Sodium 40 MG/0.4 ML SYRINGE SC SCH (08:29)
[2017-10-11] MEDS: Micafungin 100 MG in Sodium Chloride 0.9% 100 ML IVPB SCH (11:32)
[2017-10-11] MEDS: D5 1/4 NS 1,000 ML IV SCH (17:52)
--- NOTE | 2017-10-11 17:53 | PRG ---
DATE OF SERVICE: 10/11/2017 SERVICE: Pulmonary Medicine. INTERVAL HISTORY: The patient is doing fairly well from a respiratory standpoint. His oxygen satura tions are actually improved. His lung compliance is also improved. He cannot provide any additional element to the history because he is requiring a little bit of sedation. Otherwise, there has been notable change to his condition. OBJECTIVE: VITAL SIGNS: Afebrile currently with a T-max of 100.6. Pulse 70, blood pressure 152/78, respiration s 25, saturation 100% on 40% FiO2 and a PEEP of 16. HEENT: Normocephalic, atraumatic. Sclerae are white, conjunctivae pink. Oral mucosa is moist witho ut lesions. LUNGS: Better air entry. There is a prolonged expiratory phase. Crackles are present. No rhonchi or wheezing is appreciated. HEART: Normal rate, regular. ABDOMEN: Soft. Tender to palpation, but bowel sounds actually hypoactive today. GENITOURINARY: Gross catheter in place. NEUROLOGIC: Grossly nonfocal. LABORATORY DATA: WBC 28.1, hemoglobin 11.1, platelets 154,000. Band count has dropping to 8%. Neut rophil count has finally rebounding. INR 1.3. Sodium 147 and improving. Basic metabolic profile is otherwise unremarkable. Potassium is 3.9. Magnesium 1.7, phosphorus 2.0. Sputum aspirate is growi ng gram negative rods as well as yeast species. ASSESSMENT: 1. Septic shock, improving. 2. Acute hypoxic respiratory failure. 3. Peritonitis secondary to ruptured appendix. 4. Hypernatremia, improving. 5. Acute kidney injury, resolved. 6. Cardiac arrest x2 in the emergency department. 7. Healthcare-associated pneumonia secondary to gross aspiration. 8. Leukocytosis, improving. PLAN: We will continue antibiotics, nebulizer medications, and steroids. We will wean PEEP and FiO2 as the patient tolerates. We will continue to diurese the patient to euvolemia as tolerated. We wi ll need to continue our free water along the way. Hopefully, in 24-48 hours, will be in a position w here we can consider extubation, but this all depends on his oxygen requirements. Potassium and magn esium once again will be replaced today.
[2017-10-11] MEDS ORDERED: Magnesium 2 GM/NS 0.9% 50 ML 2 GM in Premix Bag 1 BAG IVPB SCH (18:00)
[2017-10-11] MEDS: Famotidine 20 MG TAB PO SCH (19:49)
[2017-10-12] MEDS: D5 1/4 NS 1,000 ML IV SCH ×4 (00:57→22:35)
[2017-10-12] MEDS: hydrALAZINE 20 MG/ML VIAL SLOW IVP PRN (01:05)
[2017-10-12] MEDS: fentaNYL Citrate/PF 2,000 MCG in Sodium Chloride 0.9% 60 ML IV SCH (01:36)
[2017-10-12] MEDS: Propofol 1,000 MG/100 ML VIAL IV PRN ×4 (02:33→18:47)
[2017-10-12] MEDS: Furosemide 20 MG/2 ML VIAL SLOW IVP SCH ×2 (05:41→13:31)
[2017-10-12] MEDS: Piperacillin-Tazo-Dextrose,Iso 3.375 GM in Premix Bag 1 BAG IVPB SCH ×6 (05:41→23:31)
[2017-10-12 07:16] LABS: Anisocytosis SLIGHT = 6-15 cells (100X) (0-5/hpf); Band 3 % (5-11); Hemoglobin 10.6 g/dL (14.0-18.0); Lymphocytes 10 % (21-51); MDiff Complete? YES; Mean Corpuscular HGB CONC 31.1 g/dL (32.0-36.0); Mean Corpuscular Hemoglobin 31.6 pg (27.0-31.0); Mean Platelet Volume 8.8 fL (7.4-10.4); Metamyelocyte 1 % (0-0); Monocytes 1 % (0-10); Neutrophil 85 % (42-75); Nucleated RBC 1 % (0); Platelet Count 178 thou/uL (130-400); RBC Distribution Width 15.5 % (11.5-14.5); Red Blood Cell (RBC) Count 3.37 mill/uL (4.70-6.10); Toxic Granulation SLIGHT; White Blood Cell (WBC) Count 22.4 thou/uL (4.8-10.8)
[2017-10-12] MEDS: Enoxaparin Sodium 40 MG/0.4 ML SYRINGE SC SCH (08:33)
[2017-10-12] MEDS: Famotidine 20 MG TAB PO SCH ×2 (08:33→20:13)
--- NOTE | 2017-10-12 11:19 | PRG ---
DATE OF SERVICE: 10/12/2017 SUBJECTIVE: The patient is sedated and remains on the vent. When his sedative is weaning down, he i s confused and combative. PHYSICAL EXAMINATION: GENERAL: Upon evaluation, he remains sedated. He is on the vent. VITAL SIGNS: His blood pressure is 130/60, pulse 57, temperature 97.2. NECK: Supple. JVP cannot be assessed. COR: Regular rate and rhythm. CHEST: Rhonchi. ABDOMEN: Hypoactive bowel sounds, soft, nontender. EXTREMITIES: Trace edema. He had palpable pedal pulses. SKIN: There is no evidence of ulcer, lesion, or rash. NEUROLOGIC: He is sedated. LABORATORY DATA: His white blood cell is 22.4, H&H is 10.6 and 34.1. His BUN is 29, creatinine 0.85 . ASSESSMENT: 1. Status post cardiac arrest. 2. Septic shock. 3. Respiratory failure. 4. Peritonitis secondary to ruptured appendix. 5. Acute kidney injury, resolved. 6. Hospital-acquired pneumonia secondary to gross aspiration. PLAN: I appreciate all the consultants following this critically ill patient. Hopefully, the patien t will be able to wean off the ventilator in the next 72 hours. This is RISHI Lazcano dictating for Dr. Mu Schneider.
--- NOTE | 2017-10-12 11:32 | PRG ---
DATE OF SERVICE: 10/12/2017 SERVICE: Pulmonary Medicine. INTERVAL HISTORY: The patient is doing poorly from a respiratory standpoint. His oxygen requirement s are better than yesterday, but this morning he is more tachycardic and tachypneic. He was a little bit hypoxemic. By increasing his oxygen, he settled down a little bit. He cannot provide additiona l elements of the history. There were no significant overnight events. PHYSICAL EXAMINATION: VITAL SIGNS: Afebrile. Pulse 67, blood pressure 155/60, respirations 26, saturation 94% on 50% FiO2 and a PEEP of 12. GENERAL: Patient is intubated and sedated. HEENT: Normocephalic, atraumatic. Sclerae are white, conjunctivae pink. Oral mucosa is moist witho ut lesions. LUNGS: Crackles are present bilaterally. There is a slightly prolonged expiratory phase with wheezi ng. No rhonchi. HEART: Normal rate, regular. ABDOMEN: Soft, nontender, nondistended. Bowel sounds are positive. MUSCULOSKELETAL: No cyanosis or clubbing. There is diffuse pitting throughout. GENITOURINARY: Gross catheter in place. NEUROLOGIC: Grossly nonfocal. LABORATORY DATA: WBC 22.4 and down trending, hemoglobin 10.6. Platelets 178,000. Band count is 3% and dropping. Sodium 147. Basic metabolic profile, magnesium and phosphorus fall within the normal limits. Sodium is nicely down trending at this time. Peritoneal fluid is growing pansensitive Pseud omonas. There are multiple organisms that are growing out of the respiratory tract. ASSESSMENT: 1. Acute hypoxic respiratory failure. 2. Healthcare-associated pneumonia secondary to gross aspiration. 3. Adult respiratory distress syndrome, suspected. 4. Septic shock, improving. 5. Peritonitis secondary to ruptured appendix. 6. Metabolic encephalopathy. 7. Hypernatremia, improving. 8. Cardiac arrest x2 in the emergency department. PLAN: We will continue antibiotics, nebulizer medications and steroids. We are working to get him v olume negative over the next 24 hours by 1-2 liters. We will continue weaning oxygen as tolerated, b ut my suspicion is that he may be developing an ARDS type picture. We will see whether or not the co mpliance of his lungs changes through time. Since he is tolerating tube feeds, I will increase his f ree water flush and gently back off and add D quarter saline. Pulmonary or Critical Care will contin ue to follow. CRITICAL CARE TIME: 30 minutes.
[2017-10-12] MEDS: Micafungin 100 MG in Sodium Chloride 0.9% 100 ML IVPB SCH (11:41)
[2017-10-13 04:56] LABS: Anion Gap 12 mmol/L (10-20); BUN (Urea Nitrogen) 20 mg/dL (8.4-25.7); Calc. Creatinine Clearance 110 mL/min (70-130); Calcium 8.5 mg/dL (7.8-10.44); Carbon Dioxide 29 mmol/L (23-31); Chloride 103 mmol/L (98-107); Estimated GFR-MDRD Greater than 90; Glucose 116 mg/dL (80-115); Potassium 4.2 mmol/L (3.5-5.1); Sodium 140 mmol/L (136-145)
[2017-10-13 05:26] LABS: Band 5 % (5-11); Hemoglobin 11.5 g/dL (14.0-18.0); Lymphocytes 5 % (21-51); MDiff Complete? YES; Mean Platelet Volume 9.5 fL (7.4-10.4); Monocytes 4 % (0-10); Neutrophil 86 % (42-75); Platelet Count 211 thou/uL (130-400); RBC Distribution Width 15.4 % (11.5-14.5); Red Blood Cell (RBC) Count 3.58 mill/uL (4.70-6.10)
[2017-10-13] MEDS: Piperacillin-Tazo-Dextrose,Iso 3.375 GM in Premix Bag 1 BAG IVPB SCH ×2 (06:19→11:32)
[2017-10-13] MEDS: Furosemide 20 MG/2 ML VIAL SLOW IVP SCH ×2 (06:19→13:46)
[2017-10-13] MEDS: D5 1/4 NS 1,000 ML IV SCH ×2 (06:20→09:34)
[2017-10-13] MEDS: Famotidine 20 MG TAB PO SCH ×2 (08:42→19:46)
[2017-10-13] MEDS: Enoxaparin Sodium 40 MG/0.4 ML SYRINGE SC SCH (08:43)
--- NOTE | 2017-10-13 10:29 | PRG ---
DATE OF SERVICE: 10/13/2017 This is YANY Lazcano-Summer dictating for Mu Schneider M.D. SUBJECTIVE: The patient is on the ventilator. His Diprivan was changed to different medication. Hi s eyes are open today. He will not follow commands, but he had double strength. He is still on mult iple medications. OBJECTIVE: GENERAL: Upon evaluation, he is awake. VITAL SIGNS: His blood pressure 130/70, pulse 80. He is afebrile. NECK: Supple. JVP is not increased. COR: Regular rate and rhythm. CHEST: Few rhonchi. ABDOMEN: Soft, normoactive bowel sounds. EXTREMITIES: Trace edema, palpable pedal pulses. SKIN: There is no evidence of ulcer lesion, or rash. NEUROLOGIC: He is awake. LABORATORY DATA: White blood cell is 19.0, his H and H is 11.5 and 35.9. His CMP is okay. His gluc ose being 116. ASSESSMENT AND PLAN: 1. Status post cardiac arrest. 2. Septic shock. 3. Respiratory failure. 4. Status post appendectomy. 5. Peritonitis secondary to ruptured appendix. 6. Metabolic encephalopathy. 7. Pneumonia. 8. Multiple medical problems. PLAN: We appreciate all consultants following this acutely ill patient. Again, hopefully we will be able to wean the patient off the vent soon so we can start aggressive rehabilitation.
[2017-10-13] MEDS: Micafungin 100 MG in Sodium Chloride 0.9% 100 ML IVPB SCH (12:18)
[2017-10-13] MEDS ORDERED: D5 1/4 NS 1,000 ML IV SCH (14:52)
--- NOTE | 2017-10-13 14:58 | PRG ---
DATE OF SERVICE: 10/13/2017 SERVICE: Pulmonary Medicine. INTERVAL HISTORY: The patient is doing fine from a cardiovascular and respiratory standpoint. His o xygenation has actually improved quite a bit. Yesterday, he has had severe agitation. We have put h im on dexmedetomidine and he seemed to tolerate this sedation much better. He is more cool, calm and collected. He is following commands. He denies any current fevers or chills. There were no overni ght events. PHYSICAL EXAMINATION: VITAL SIGNS: Afebrile with T-max of 100.6. Pulse 61, blood pressure 131/64, respirations 19, satura tion 98% on 40% FiO2 and a PEEP of 12. GENERAL: Patient is intubated and sedated. He is in no apparent distress. LUNGS: Excellent air entry. Rhonchi and crackles are both present. There is less upper lung expira tory phase and less wheezing. HEART: Normal rate, regular. ABDOMEN: Soft, nontender, nondistended. Bowel sounds are positive. MUSCULOSKELETAL: No cyanosis or clubbing. There is diffuse pitting throughout which is roughly 2+ a t most places. GENITOURINARY: Gross catheter in place. NEUROLOGIC: Grossly nonfocal. LABORATORY DATA: WBC is down trending to 19.0, hemoglobin 11.5, platelets 211,000. Band count is lo w at 5% and neutrophil count is stable at 86%. INR 1.3. Basic metabolic profile is essentially back to normal. Sodium has improved to 140, chloride 103. Creatinine is normal. Magnesium and phosphor us from yesterday were essentially unremarkable. Respiratory culture is growing Pseudomonas fluoresc ens. This is sensitive to CIPROFLOXACIN, LEVAQUIN, and BACTRIM as well as TOBRAMYCIN. ASSESSMENT: 1. Acute hypoxic respiratory failure, improving. 2. Healthcare-associated pneumonia secondary to gross aspiration. 3. Adult respiratory distress syndrome. 4. Septic shock, improving. 5. Peritonitis secondary to ruptured appendix. 6. Metabolic encephalopathy. 7. Hypernatremia, resolved. 8. Cardiac arrest x2. PLAN: I will discontinue IV fluids and change into KVO. We will put all that free water into the tu be feeds. I will continue to diurese him aggressively over the next 24-48 hours so long as he tolera tommy it. I will repeat magnesium and phosphorus tomorrow morning. If he tolerates dropping FiO2 to 3 0%, we will start backing off of PEEP. CRITICAL CARE TIME: 30 minutes.
--- NOTE | 2017-10-13 16:45 | PRG ---
DATE OF SERVICE: 10/13/2017 SUBJECTIVE: I have seen Mr. Deleon on behalf of Dr. Mills. The patient is postoperative day #8 stat us post open appendectomy and drainage of abscess. The patient remains on mechanical ventilator supp ort and tolerated and weaned per Pulmonary Critical Care. He has adequate bowel function and has had stable vital signs otherwise. On abdominal examination, wound is clean and intact and dry. He santosh rly has no gross peritoneal signs. There remains no further surgical intervention for this patient a t this time. Medical management has been provided by Critical Care.
[2017-10-13] MEDS ORDERED: Piperacillin-Tazo-Dextrose,Iso 3.375 GM in Sodium Chloride 0.9% 100 ML IVPB SCH (18:00)
[2017-10-13] MEDS: Piperacillin/Tazobactam 3.375 GM in Sodium Chloride 0.9% 100 ML IVPB SCH (18:25)
[2017-10-13] MEDS ORDERED: Furosemide 20 MG/2 ML VIAL SLOW IVP SCH (20:00)
[2017-10-14 06:28] LABS: Anion Gap 10 mmol/L (10-20); BUN (Urea Nitrogen) 21 mg/dL (8.4-25.7); Calc. Creatinine Clearance 109 mL/min (70-130); Calcium 8.3 mg/dL (7.8-10.44); Carbon Dioxide 29 mmol/L (23-31); Chloride 105 mmol/L (98-107); Estimated GFR-MDRD Greater than 90; Glucose 106 mg/dL (80-115); Magnesium 2.1 mg/dL (1.6-2.6); Phosphorus 3.5 mg/dL (2.3-4.7); Potassium 4.1 mmol/L (3.5-5.1); Sodium 140 mmol/L (136-145)
[2017-10-14] MEDS: Furosemide 20 MG/2 ML VIAL SLOW IVP SCH ×2 (06:28→14:24)
[2017-10-14] MEDS: Piperacillin/Tazobactam 3.375 GM in Sodium Chloride 0.9% 100 ML IVPB SCH ×5 (06:28→18:20)
[2017-10-14 06:47] LABS: Band 1 % (5-11); Eosinophils 1 % (0-10); Hemoglobin 10.9 g/dL (14.0-18.0); Lymphocytes 7 % (21-51); MDiff Complete? YES; Mean Corpuscular HGB CONC 32.2 g/dL (32.0-36.0); Mean Corpuscular Hemoglobin 31.9 pg (27.0-31.0); Mean Corpuscular Volume 99.1 fl (80.0-94.0); Mean Platelet Volume 9.5 fL (7.4-10.4); Monocytes 4 % (0-10); Neutrophil 87 % (42-75); Platelet Count 272 thou/uL (130-400); RBC Distribution Width 15.3 % (11.5-14.5); Red Blood Cell (RBC) Count 3.43 mill/uL (4.70-6.10)
[2017-10-14] MEDS: Enoxaparin Sodium 40 MG/0.4 ML SYRINGE SC SCH (09:06)
[2017-10-14] MEDS: Famotidine 20 MG TAB PO SCH ×2 (09:06→20:41)
[2017-10-14] MEDS: fentaNYL Citrate/PF 2,000 MCG in Sodium Chloride 0.9% 60 ML IV SCH (13:00)
--- NOTE | 2017-10-14 13:16 | PRG ---
This is YANY Lazcano-Summer, dictating for Dr. Mu Schneider. DATE OF SERVICE: 10/14/2017 SUBJECTIVE: The patient remains intubated on the ventilator. He still has IV sedation. His blood p ressure remains anywhere from 90s-120s. Temperature was low grade at 99. Upon evaluation, he is on the ventilator. He is sedated. OBJECTIVE: VITAL SIGNS: His blood pressure is as above. NECK: Supple. JVD cannot be assessed. COR: Regular rate and rhythm. CHEST: A few scattered rhonchi upper lobes. ABDOMEN: Soft. Normoactive bowel sounds. No bruit or organomegaly. EXTREMITIES: Trace edema. Palpable pedal pulses. SKIN: There is no evidence of ulcers lesion, or rash. NEUROLOGIC: He is sedated. LABORATORY DATA: White blood cells 22.0, hemoglobin and hematocrit is 10.9 and 34.0, his platelet co unt is 272. CMP is unremarkable. There is no chest x-ray in the chart. ASSESSMENT: 1. Respiratory failure. 2. Status post cardiac arrest. 3. Septic shock. 4. Peritonitis, resolved. 5. Status post appendectomy. 6. Multiple medical problems. PLAN: Proceed all consultants following this critically ill patient. We will follow up with the CBC , CMP and chest x-ray in the morning. Further orders per critical care.
[2017-10-14] MEDS: Micafungin 100 MG in Sodium Chloride 0.9% 100 ML IVPB SCH (13:22)
--- NOTE | 2017-10-14 15:08 | PRG ---
DATE OF SERVICE: 10/14/2017 SERVICE: Pulmonary Medicine. INTERVAL HISTORY: The patient is doing great from a respiratory standpoint. He does not have any fe vers, chills, nausea or vomiting. He has no belly discomfort. As such, we will back off on his pain medication a little bit. He is awake, alert, and cooperative. There have been no events overnight. PHYSICAL EXAMINATION: VITAL SIGNS: Afebrile with a T-max of 100.2, pulse 70, blood pressure 120/54, respirations 18, satur ation 98% on 33% FIO2 and a PEEP of 12. GENERAL: Patient is awake, alert, in no apparent distress. LUNGS: Excellent air entry. Dependent crackles are much improved. There is still present; however. He does not have any prolonged expiratory phase or wheezing any longer. HEART: Normal rate, regular. ABDOMEN: Soft. Distended. Bowel sounds are present. No rebound or guarding is appreciated. MUSCULOSKELETAL: No cyanosis or clubbing. There is diffuse 2-3+ pitting throughout. GENITOURINARY: Gross catheter in place. NEUROLOGIC: Grossly nonfocal. LABORATORY DATA: CBC, and basic metabolic profile including magnesium and phosphorus are completely unremarkable. The WBC has gone up a little bit, but the band count has leveled off which is nice to see. Multiple different organisms are growing from everything. These are covered by his antibiotics . ASSESSMENT: 1. Acute hypoxic respiratory failure, improving. 2. Healthcare-associated pneumonia secondary to gross aspiration. 3. Massive volume overload, improving. 4. Septic shock, resolved. 5. Peritonitis secondary to ruptured appendix. 6. Metabolic encephalopathy. 7. Hypernatremia, resolved. 8. Cardiac arrest x2. PLAN: The patient is doing fantastic at this point. We will continue to work on diuresing him. The thing that is preventing us from extubating him comfortably is his significant oxygen requirements. We will reduce his PEEP right now. My goal is for him to be 2-3 liters negative over the next 24 ho urs. If he is going to fall short of that target, a repeat dose of Lasix will be considered later th is evening. CRITICAL CARE TIME: 30 minutes.
--- NOTE | 2017-10-14 15:09 | PRG ---
DATE OF SERVICE: 10/14/2017 Mr. Deleon is slightly sedated on mechanical ventilator support. Awakes easily, moves all extremitie s. He is tolerating tube feeds at goal, having bowel movements. He has been hemodynamically stable. Hi s respiratory failure appears to be improving. Abdominal examination reveals intact wounds, which ar e healed. He has no abdominal tenderness to palpation. The patient remains stable from surgical standpoint and requires no further interventions from surger y at this time.
[2017-10-14] MEDS ORDERED: Furosemide 20 MG/2 ML VIAL SLOW IVP SCH (20:00)
[2017-10-15] MEDS: Piperacillin/Tazobactam 3.375 GM in Sodium Chloride 0.9% 100 ML IVPB SCH ×5 (00:25→23:58)
[2017-10-15 05:59] LABS: #Basophils 0.1 thou/uL (0.0-0.2); #Eosinphils 0.2 thou/uL (0.0-0.7); #Lymphocytes 1.5 thou/uL (1.20-3.40); #Monocytes 0.7 thou/uL (0.11-0.59); #Neutrophils 18.4 thou/uL (1.40-6.50); %Basophils 0.3 % (0.0-1.0); %Eosinophils 1.1 % (0.0-10.0); %Lymphocytes 7.3 % (21.0-51.0); %Monocytes 3.5 % (0.0-10.0); %Neutrophils 87.8 % (42.0-75.0); Mean Corpuscular HGB CONC 31.6 g/dL (32.0-36.0); Mean Corpuscular Hemoglobin 31.4 pg (27.0-31.0); Mean Corpuscular Volume 99.3 fl (80.0-94.0); Mean Platelet Volume 8.7 fL (7.4-10.4); Platelet Count 345 thou/uL (130-400); RBC Distribution Width 15.2 % (11.5-14.5); Red Blood Cell (RBC) Count 3.18 mill/uL (4.70-6.10); White Blood Cell (WBC) Count 20.9 thou/uL (4.8-10.8)
[2017-10-15 06:11] LABS: Manual Diff?? YES
[2017-10-15 06:15] LABS: ALT (SGPT) 54 U/L (8-55); AST (SGOT) 36 U/L (5-34); Albumin 2.5 g/dL (3.4-4.8); Alkaline Phosphatase 191 U/L (40-150); Anion Gap 12 mmol/L (10-20); BUN (Urea Nitrogen) 22 mg/dL (8.4-25.7); Bilirubin, Total 1.1 mg/dL (0.2-1.2); Calc. Creatinine Clearance 92 mL/min (70-130); Calcium 8.4 mg/dL (7.8-10.44); Carbon Dioxide 26 mmol/L (23-31); Chloride 105 mmol/L (98-107); Estimated GFR-MDRD 83; Globulin 3.6 g/dL (2.4-3.5); Glucose 120 mg/dL (80-115); Phosphorus 3.6 mg/dL (2.3-4.7); Protein, Total 6.1 g/dL (5.8-8.1); Sodium 139 mmol/L (136-145)
[2017-10-15] MEDS: Furosemide 20 MG/2 ML VIAL SLOW IVP SCH ×2 (06:27→15:08)
[2017-10-15 06:41] LABS: Band 3 % (5-11); Eosinophils 1 % (0-10); Lymphocytes 5 % (21-51); Monocytes 5 % (0-10); Myelocyte 1 % (0-0)
--- NOTE | 2017-10-15 07:23 | PRG ---
DATE OF SERVICE: 10/15/2017 SUBJECTIVE: The patient is doing much better. He is wide awake on the vent. His oxygenation is imp roved. He denies pain. PHYSICAL EXAMINATION: VITAL SIGNS: His temperature is 99.1, pulse 79, blood pressure 162/66. GENERAL: He is awake, alert. ABDOMEN: Soft, nondistended. Good bowel sounds. GENITOURINARY: Urine output, 4000. ASSESSMENT: Doing well. PLAN: Continue supportive care.
[2017-10-15] MEDS ORDERED: fentaNYL Citrate/PF 2,000 MCG in Sodium Chloride 0.9% 60 ML IV SCH (08:15)
[2017-10-15] MEDS: Famotidine 20 MG TAB PO SCH ×2 (09:00→21:36)
[2017-10-15] MEDS: Enoxaparin Sodium 40 MG/0.4 ML SYRINGE SC SCH (09:00)
[2017-10-15] MEDS ORDERED: Norepinephrine 8 MG/250 ML BAG IVPB PRN (09:19)
[2017-10-15] MEDS ORDERED: Norepinephrine 8 MG in Sodium Chloride 0.9% 250 ML 250 ML IVPB PRN (09:45)
[2017-10-15] MEDS: Micafungin 100 MG in Sodium Chloride 0.9% 100 ML IVPB SCH (13:26)
[2017-10-15] MEDS ORDERED: Furosemide 20 MG/2 ML VIAL SLOW IVP SCH (22:00)
[2017-10-16] MEDS: Furosemide 20 MG/2 ML VIAL SLOW IVP SCH ×2 (05:23→14:02)
[2017-10-16] MEDS: Piperacillin/Tazobactam 3.375 GM in Sodium Chloride 0.9% 100 ML IVPB SCH ×3 (05:23→17:55)
[2017-10-16 05:49] LABS: #Eosinphils 0.3 thou/uL (0.0-0.7); #Lymphocytes 1.8 thou/uL (1.20-3.40); #Neutrophils 20.5 thou/uL (1.40-6.50); %Eosinophils 1.3 % (0.0-10.0); %Lymphocytes 7.4 % (21.0-51.0); %Monocytes 4.4 % (0.0-10.0); %Neutrophils 86.9 % (42.0-75.0); Hemoglobin 10.1 g/dL (14.0-18.0); Mean Corpuscular HGB CONC 30.9 g/dL (32.0-36.0); Mean Corpuscular Hemoglobin 30.8 pg (27.0-31.0); Mean Corpuscular Volume 99.7 fl (80.0-94.0); Mean Platelet Volume 8.5 fL (7.4-10.4); Platelet Count 461 thou/uL (130-400); RBC Distribution Width 15.2 % (11.5-14.5); Red Blood Cell (RBC) Count 3.29 mill/uL (4.70-6.10); White Blood Cell (WBC) Count 23.5 thou/uL (4.8-10.8)
[2017-10-16 06:04] LABS: Anion Gap 13 mmol/L (10-20); BUN (Urea Nitrogen) 26 mg/dL (8.4-25.7); Calc. Creatinine Clearance 84 mL/min (70-130); Calcium 8.6 mg/dL (7.8-10.44); Carbon Dioxide 24 mmol/L (23-31); Chloride 105 mmol/L (98-107); Estimated GFR-MDRD 82; Glucose 113 mg/dL (80-115); Magnesium 2.2 mg/dL (1.6-2.6); Potassium 4.2 mmol/L (3.5-5.1); Sodium 138 mmol/L (136-145)
--- NOTE | 2017-10-16 08:48 | RAD ---
PORTABLE SEMIUPRIGHT FRONTAL CHEST RADIOGRAPH: Date: 10-16-17 Comparison: 10-10-17 History: Ventilated CCU patient. FINDINGS: Endotracheal tube, nasogastric tube, and right sided vascular catheter are present. The distal tip of the nasogastric tube overlies the gastric air bubble in the left upper quadrant. This catheter could be advanced. There is mild perihilar and basilar interstitial prominence on the right, improved. There is patchy i nterstitial and alveolar opacity involving the mid left lung zone and the left lung base, improved as well. IMPRESSION: Lines and tubes as above. Interstitial and alveolar opacity noted bilaterally, left greater than righ t, improved. Continued follow up to resolution is advised. POS: YADIRA
--- NOTE | 2017-10-16 09:45 | PRG ---
DATE OF SERVICE: 10/16/2017 SUBJECTIVE: The patient is awake. He will nod his head yes or no to questions. PHYSICAL EXAMINATION: VITAL SIGNS: His blood pressure is 109/46, pulse is 60. He is afebrile. COR: Regular rate and rhythm. CHEST: Fairly clear to auscultation and percussion in upper lobes. ABDOMEN: Soft and nontender with normoactive bowel sounds. No bruit or organomegaly. EXTREMITIES: No edema or cyanosis. He had wrist restraints on and he had palpable pedal pulses. SKIN: There is no evidence of ulcer, lesion, or rash. NEUROLOGIC: He is awake. LABORATORY DATA: White blood cells 23.5, his H and H 10.1 and 32.8. His BUN and creatinine are norm al. His chest x-ray is pending. ASSESSMENT: 1. Septic shock. 2. Adult respiratory distress syndrome. 3. Respiratory failure. 4. Pneumonia. 5. Peritonitis secondary to ruptured appendix. 6. Status post cardiac arrest. 7. Acute renal insufficiency, resolved. PLAN: We will continue same current medication regimen, multiple consultants are following. Hopeful ly, the vent will be weaned off and this patient can start rehab. Briseida SLADE-C dictating for Mu Schneider M.D.
[2017-10-16] MEDS: Famotidine 20 MG TAB PO SCH ×2 (09:51→21:32)
[2017-10-16] MEDS: Enoxaparin Sodium 40 MG/0.4 ML SYRINGE SC SCH (09:51)
--- NOTE | 2017-10-16 10:30 | PRG ---
DATE OF SERVICE: 10/15/2017 SERVICE: Pulmonary Medicine. INTERVAL HISTORY: The patient is doing really well from a respiratory standpoint. Oxygen requiremen ts are reducing. We are getting him negative every single day with the use of some Lasix. Otherwise , there has been no interval change to his condition. He had no overnight events. PHYSICAL EXAMINATION: VITAL SIGNS: Afebrile with a T-max of 100.2. Pulse 75, blood pressure 120/47, respirations 28, satu ration 94% on 28% FiO2. GENERAL: The patient is awake and alert. He is in no apparent distress. LUNGS: Excellent air entry. Crackles are present. No prolonged expiratory phase. HEART: Normal rate, regular. ABDOMEN: Soft, nontender, and nondistended. Bowel sounds positive. MUSCULOSKELETAL: No cyanosis or clubbing. There is diffuse 2+ pitting throughout. GENITOURINARY: Gross catheter in place. NEUROLOGIC: Grossly nonfocal. LABORATORY DATA: WBC 23.5, hemoglobin 10.1, platelets 461,000. INR 1.3. Basic metabolic profile is essentially unremarkable. BUN is 26. Cultures are growing multiple species. ASSESSMENT: 1. Acute hypoxic respiratory failure, improving. 2. Healthcare-associated pneumonia secondary to gross aspiration. 3. Massive volume overload, resolving. 4. Septic shock, resolved. 5. Peritonitis secondary to ruptured appendix. 6. Metabolic encephalopathy, resolved. 7. Cardiac arrest x2. PLAN: We will continue to wean PEEP. We will drop into 7. I will put him on a spontaneous breathin g trial, but I do not quite have control of his volume status to allow for me to extubate him current ly. We will try to get him 1-2 liters negative over the next 24 hours. Hopefully, we can consider h im for CPAP with the intent to extubate by tomorrow. CRITICAL CARE TIME: 30 minutes.
--- NOTE | 2017-10-16 10:35 | PRG ---
DATE OF SERVICE: 10/16/2017 SERVICE: Pulmonary Medicine INTERVAL HISTORY: The patient is doing really well from a cardiovascular and respiratory standpoint. He currently denies any fevers, chills, nausea or vomiting. He is on mechanical ventilation, breat dianna quite comfortably. He tolerated dropping the PEEP yesterday. There were no overnight events. PHYSICAL EXAMINATION: VITAL SIGNS: Afebrile. Pulse 58, blood pressure 139/52, respirations 26, saturation 94% on 27% FiO2 and a PEEP of 5. GENERAL: The patient is awake, alert, in no apparent distress. LUNGS: Excellent air entry. There are some minimal crackles present. These are greatly improved. HEART: Normal rate, regular. ABDOMEN: Soft, nontender, nondistended. Bowel sounds are positive. MUSCULOSKELETAL: No cyanosis or clubbing. No pitting in the bilateral lower extremities. NEUROLOGIC: Grossly nonfocal. LABORATORY DATA: WBC 23.5, hemoglobin 10.1, platelets 461,000. Basic metabolic profile and magnesiu m are grossly unremarkable. Bicarb remains low at 24. ASSESSMENT: 1. Acute hypoxic respiratory failure, improving. 2. Healthcare-associated pneumonia secondary to gross aspiration. 3. Gross peritonitis secondary to ruptured appendix. 4. Massive volume overload, resolving. 5. Septic shock, resolved. 6. Cardiac arrest x2. PLAN: The patient continues to do quite well. We will wean him down to 5 of PEEP. We will put him on a spontaneous breathing trial and if he meets criteria, extubation will be considered. I am going to increase my Lasix to 40 mg twice daily. Our target is to be negative 1-2 liters every day moving forward until he returns to euvolemia.
[2017-10-16] MEDS: Micafungin 100 MG in Sodium Chloride 0.9% 100 ML IVPB SCH (12:30)
[2017-10-17] MEDS: Piperacillin/Tazobactam 3.375 GM in Sodium Chloride 0.9% 100 ML IVPB SCH ×2 (00:45→05:36)
[2017-10-17 06:02] LABS: #Basophils 0.1 thou/uL (0.0-0.2); #Eosinphils 0.2 thou/uL (0.0-0.7); #Lymphocytes 1.5 thou/uL (1.20-3.40); #Neutrophils 16.7 thou/uL (1.40-6.50); %Basophils 0.4 % (0.0-1.0); %Eosinophils 0.9 % (0.0-10.0); %Lymphocytes 7.9 % (21.0-51.0); %Neutrophils 85.9 % (42.0-75.0); Hemoglobin 10.2 g/dL (14.0-18.0); Mean Corpuscular HGB CONC 32.1 g/dL (32.0-36.0); Mean Corpuscular Hemoglobin 31.8 pg (27.0-31.0); Mean Corpuscular Volume 98.9 fl (80.0-94.0); Mean Platelet Volume 8.1 fL (7.4-10.4); Platelet Count 530 thou/uL (130-400); RBC Distribution Width 15.1 % (11.5-14.5); Red Blood Cell (RBC) Count 3.22 mill/uL (4.70-6.10); White Blood Cell (WBC) Count 19.4 thou/uL (4.8-10.8)
[2017-10-17] MEDS: Furosemide 20 MG/2 ML VIAL SLOW IVP SCH (06:02)
[2017-10-17 06:15] LABS: Anion Gap 14 mmol/L (10-20); BUN (Urea Nitrogen) 21 mg/dL (8.4-25.7); Calc. Creatinine Clearance 85 mL/min (70-130); Calcium 8.8 mg/dL (7.8-10.44); Carbon Dioxide 22 mmol/L (23-31); Chloride 108 mmol/L (98-107); Estimated GFR-MDRD 83; Glucose 98 mg/dL (80-115); Magnesium 2.3 mg/dL (1.6-2.6); Sodium 140 mmol/L (136-145)
[2017-10-17] MEDS: Enoxaparin Sodium 40 MG/0.4 ML SYRINGE SC SCH (09:34)
[2017-10-17] MEDS: Famotidine 20 MG TAB PO SCH ×2 (09:34→20:48)
--- NOTE | 2017-10-17 11:56 | PRG ---
DATE OF SERVICE: 10/17/2017 Mr. Deleon was extubated yesterday. He is up in a chair. He feels well, had no complaints. PHYSICAL EXAMINATION: VITAL SIGNS: Temperature 98.5, pulse 90, respirations 18, blood pressure 111/53. 24 hour intake 110 6, output 3680. He has been in negative fluid balance now for the last 4 days. HEENT: Unremarkable. NECK: Without adenopathy or JVD. LUNGS: Clear to auscultation without wheezing. CARDIOVASCULAR: S1, S2 regular. ABDOMEN: Soft, protuberant. Bowel sounds normoactive. EXTREMITIES: Without clubbing, cyanosis. He has trace edema. LABORATORY DATA: Sodium 140, potassium 4, chloride 108, CO2 22, BUN 21, creatinine 0.9, glucose 98. White blood cell count 19.4, hematocrit 31.9, platelet count 530. ASSESSMENT: 1. Status post peritonitis after a perforated appendix. 2. Status post septic shock. 3. Status post acute respiratory failure requiring mechanical ventilation. 4. Status post aspiration pneumonia. 5. Status post cardiac arrest x2. PLAN: Discontinue the Precedex, discontinue the central line. Hopefully able to move him to the [facility] or later today. Continue the IV antibiotics.
[2017-10-17] MEDS: Micafungin 100 MG in Sodium Chloride 0.9% 100 ML IVPB SCH (14:03)
[2017-10-18 04:34] LABS: #Basophils 0.1 thou/uL (0.0-0.2); #Eosinphils 0.2 thou/uL (0.0-0.7); #Lymphocytes 1.7 thou/uL (1.20-3.40); #Monocytes 1.2 thou/uL (0.11-0.59); #Neutrophils 13.1 thou/uL (1.40-6.50); %Basophils 0.4 % (0.0-1.0); %Lymphocytes 10.3 % (21.0-51.0); %Monocytes 7.4 % (0.0-10.0); %Neutrophils 80.9 % (42.0-75.0); Mean Corpuscular HGB CONC 33.5 g/dL (32.0-36.0); Mean Corpuscular Volume 98.6 fl (80.0-94.0); Mean Platelet Volume 8.5 fL (7.4-10.4); Platelet Count 596 thou/uL (130-400); RBC Distribution Width 15.5 % (11.5-14.5); Red Blood Cell (RBC) Count 3.33 mill/uL (4.70-6.10); White Blood Cell (WBC) Count 16.2 thou/uL (4.8-10.8)
[2017-10-18 04:48] LABS: Anion Gap 16 mmol/L (10-20); BUN (Urea Nitrogen) 21 mg/dL (8.4-25.7); Calc. Creatinine Clearance 87 mL/min (70-130); Calcium 9.2 mg/dL (7.8-10.44); Carbon Dioxide 22 mmol/L (23-31); Chloride 109 mmol/L (98-107); Estimated GFR-MDRD 86; Glucose 98 mg/dL (80-115); Magnesium 2.2 mg/dL (1.6-2.6); Potassium 3.7 mmol/L (3.5-5.1); Sodium 143 mmol/L (136-145)
[2017-10-18] MEDS: Famotidine 20 MG TAB PO SCH ×2 (08:45→20:12)
[2017-10-18] MEDS: Enoxaparin Sodium 40 MG/0.4 ML SYRINGE SC SCH (08:45)
[2017-10-18] MEDS ORDERED: Furosemide 40 MG/4 ML VIAL SLOW IVP SCH (09:00)
--- NOTE | 2017-10-18 10:47 | PRG ---
DATE OF SERVICE: 10/18/2017 SUBJECTIVE: He is feeling better. He says he has been up walking. OBJECTIVE: VITAL SIGNS: His temperature is 98.2, pulse 85, respiration rate 16, O2 sat 95% on 1 liter, blood pr essure 158/77. HEENT: Unremarkable. NECK: No JVD. CHEST: Clear. CARDIAC: S1 and S2 regular. ABDOMEN: Soft, nontender. Surgical wound is healing. EXTREMITIES: No edema. LABORATORY DATA: White blood cell count 16.2, hematocrit 32.8, platelet count 596. Sodium 143, pota ssium 3.7, chloride 109, CO2 22, BUN 21, creatinine 0.8, glucose 98. ASSESSMENT: 1. Status post septic shock from perforated appendix. 2. Status post prolonged respiratory failure from mechanical ventilation. 3. Status post cardiac arrest x2. PLAN: I think we can back down on lab draws. Main issue at this time is rehabilitation. I think we should be able to stop micafungin after tomorrow.
--- NOTE | 2017-10-18 11:09 | PRG-2 ---
DATE OF SERVICE: 10/18/2017 This is YANY Lazcano-Summer dictating for Mu Schneider M.D SUBJECTIVE: The patient is on the floor now. OBJECTIVE: GENERAL: He is awake, he is alert. He is on oxygen upon evaluation. VITAL SIGNS: His blood pressure early this morning was 170/80, however. Later this morning his puls e is 90. His temperature is 97.8. NECK: Supple with no increased JVP or carotid bruit. Carotid had good upstroke with no thyromegaly. COR: Regular rate and rhythm. CHEST: Symmetrical. Clear to auscultation, percussion in upper lobes. ABDOMEN: Soft and nontender. EXTREMITIES: No edema or cyanosis. He had palpable pedal pulses. SKIN: There is no evidence of ulcers, lesions, no rash. NEURO: He is awake. LABORATORY DATA: He has white blood cells 16.2. His H&H is 11.0 and 32.8. His platelet is 596. Hi s BUN and creatinine are normal. There is no chest x-ray in the chart. ASSESSMENT: 1. Status post peritonitis after perforated appendix. 2. Septic shock, improved. 3. Respiratory failure, requiring vent now, but he improved off the ventilator. 4. Multiple medical problems. PLAN: The patient will be continued on IV antibiotic for look at social media campaign manager consult for rehab. Nataly small will follow up with lab in the morning.
[2017-10-18] MEDS: Micafungin 100 MG in Sodium Chloride 0.9% 100 ML IVPB SCH (11:48)
[2017-10-19 05:43] LABS: Hemoglobin 10.4 g/dL (14.0-18.0); Mean Corpuscular HGB CONC 31.9 g/dL (32.0-36.0); Mean Corpuscular Hemoglobin 31.7 pg (27.0-31.0); Mean Corpuscular Volume 99.2 fl (80.0-94.0); Mean Platelet Volume 7.8 fL (7.4-10.4); Platelet Count 668 thou/uL (130-400); RBC Distribution Width 15.4 % (11.5-14.5); Red Blood Cell (RBC) Count 3.28 mill/uL (4.70-6.10); White Blood Cell (WBC) Count 14.1 thou/uL (4.8-10.8)
[2017-10-19 05:51] LABS: ALT (SGPT) 64 U/L (8-55); AST (SGOT) 36 U/L (5-34); Alkaline Phosphatase 186 U/L (40-150); Anion Gap 17 mmol/L (10-20); BUN (Urea Nitrogen) 19 mg/dL (8.4-25.7); Bilirubin, Total 0.9 mg/dL (0.2-1.2); Calc. Creatinine Clearance 92 mL/min (70-130); Calcium 9.1 mg/dL (7.8-10.44); Carbon Dioxide 18 mmol/L (23-31); Chloride 112 mmol/L (98-107); Estimated GFR-MDRD Greater than 90; Globulin 4.5 g/dL (2.4-3.5); Glucose 98 mg/dL (80-115); Potassium 3.6 mmol/L (3.5-5.1); Protein, Total 7.5 g/dL (5.8-8.1); Sodium 143 mmol/L (136-145)
[2017-10-19 08:24] VITALS: BMI 27.3
[2017-10-19] MEDS: Carvedilol 6.25 MG TAB PO SCH ×2 (09:14→20:27)
[2017-10-19] MEDS: Furosemide 20 MG TAB PO SCH (09:14)
[2017-10-19] MEDS: Famotidine 20 MG TAB PO SCH ×2 (09:14→20:27)
[2017-10-19] MEDS: Enoxaparin Sodium 40 MG/0.4 ML SYRINGE SC SCH (09:15)
--- NOTE | 2017-10-19 11:25 | PRG ---
DATE OF SERVICE: 10/19/2017 SUBJECTIVE: He is in good spirits, he had no complaints today. OBJECTIVE: VITAL SIGNS: Temperature is 99.4, pulse 87, respirations 18, O2 saturation 95%, and blood pressure 1 45/74. HEENT: Unremarkable. NECK: No JVD. CHEST: Clear. CARDIAC: S1 and S2, regular. ABDOMEN: Slightly distended. EXTREMITIES: No edema. LABORATORY DATA: White blood cell count 14, hematocrit 32.5, platelet count is 668. Sodium 143, pot assium 4.6, chloride 112, CO2 of 18, BUN 90, creatinine 0.8, and glucose 98. ASSESSMENT: 1. Status post peritonitis from perforated appendix. 2. Status post prolonged mechanical ventilation. 3. Deconditioning. PLAN: The patient needs to increase activity. His Gross will be discontinued. He continues on enox aparin for DVT prophylaxis. He is on oral antibiotics. We will go ahead and stop the micafungin sin ce he has had 7 days of that.
[2017-10-19] MEDS ORDERED: Simvastatin 5 MG TAB PO SCH (21:00)
[2017-10-19] MEDS ORDERED: Donepezil HCl 5 MG TAB PO SCH (21:00)
[2017-10-20 07:24] VITALS: BP 121/67; TEMP 97.4
[2017-10-20] MEDS: Famotidine 20 MG TAB PO SCH (08:17)
[2017-10-20] MEDS: Carvedilol 6.25 MG TAB PO SCH (08:17)
[2017-10-20] MEDS: Enoxaparin Sodium 40 MG/0.4 ML SYRINGE SC SCH (08:18)
[2017-10-20] MEDS: Furosemide 20 MG TAB PO SCH (08:18)
--- NOTE | 2017-10-20 14:06 | DIS ---
DATE OF ADMISSION: 10/05/2017 DATE OF DISCHARGE: 10/20/2017 CHIEF COMPLAINT ON ADMISSION: Ruptured appendix with ileus, aspiration and cardiac arrest x2. History and physical have previously been dictated. I will resume from there. HOSPITAL COURSE: The patient was placed in ICU where he remained intubated and ventilated for many d ays. It was felt that it might be a possibility of a need to go back in and re-operate; however, the ileus finally resolved and he finally began to have spontaneous bowel movements around 1518. Up to that point, he had significant adult respiratory distress syndrome. He was critically ill and it was very concerning whether he would even survive. White count elevated to 29,000 on 10/08/2017. Such that, the family was counseled that his prognosis was quite poor; however, over time the acute kidney injury slowly resolved. His peritonitis slowly cleared. His horrible lung exam improved and as men tioned by 10/12/2017, he had had 5 bowel movements. His white count was down to 22,000. He was slow ly improving. By 10/15/2017, he was alert, still intubated, but able to follow commands. White coun t down to 20.9 thousand. Electrolytes were good. His breath sounds were good bilaterally. He was f inally able to be extubated and continued to slowly improve, being alert, in no distress, able to get up at only edge of the bed. Physical Therapy called in and slowly began to ambulate him. White cou nt continued to diminish. By 10/19/2017, he was eating well, no acute distress, simply weak. It was noted there was some confusion and possible sundowning at night, but with everything he had been thr ough and being in a strange location. This was simply monitored. It was our first choice that he go ing to an inpatient rehabilitation facility; however, despite orders, there was no action taken to pr oceed with this and the patient continued to improve such that by 10/19/2017 or 10/20/2017, he was am bulating on his own, able to do his own daily activities such as going to the bathroom, to eat, showe r, clean himself up, there had been no accidents. He was fully mentally intact during his discharge consultation without any sign of confusion and it was deemed he was able to go home with home health as physical therapy had recommended 2-3 days earlier and he would follow with Dr. Schneider in 1 week. Patricia small will follow up with a surgeon in 2 weeks. DISCHARGE DIAGNOSES: Appendicitis with rupture, hyponatremia, acute renal failure, acute respiratory failure, status post cardiac arrest x2, possible aspiration pneumonia with septic shock and finally deconditioning - improving. PLAN: Will to be discharged home with home health. He will follow up with Dr. Schneider in 1 week for f ull return to work. He will follow up with a surgeon in 2 weeks. He will resume his usual medicatio ns and call Dr. Schneider should there be any further complications. He is discharged in stable conditio n. He is to stay out of the cold weather and gradually increase his physical activity endorse and ca ll if there is any return of pain, fever, nausea, vomiting, or discomfort. 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
--- NOTE | 2017-10-24 14:54 | EKG ---
Test Reason : SOB Blood Pressure : / mmHG Vent. Rate : 090 BPM Atrial Rate : 090 BPM P-R Int : 148 ms QRS Dur : 078 ms QT Int : 390 ms P-R-T Axes : 044 042 059 degrees QTc Int : 477 ms Normal sinus rhythm Normal ECG Confirmed by AMANDO GOMEZ ([id number]), editorial writer STAR GOODWIN ([id number]) on 10/24/2017 2:53:38 PM Referred By: Confirmed By:AMANDO GOMEZ
== END 2017-10-20 16:30 | disposition home health service (06) | DRG 853 ==
LOC: ERS 11:58 → CCU 15:03 → T4-A 10-17 17:09
PROVIDERS: ADMIT Specialist; ATTEND Specialist
PROC: 0DTJ0ZZ Resection of Appendix, Open Approach (ICD-10-PCS; principal; 2017-10-05)
PROC: 5A1955Z Respiratory Ventilation, Greater than 96 Consecutive Hours (ICD-10-PCS; 2017-10-05)
PROC: 0BH17EZ Insertion of Endotracheal Airway into Trachea, Via Natural or Artificial Opening (ICD-10-PCS; 2017-10-05)
PROC: 0B978ZZ Drainage of Left Main Bronchus, Via Natural or Artificial Opening Endoscopic (ICD-10-PCS; 2017-10-05)
PROC: 0B938ZZ Drainage of Right Main Bronchus, Via Natural or Artificial Opening Endoscopic (ICD-10-PCS; 2017-10-05)
PROC: 30233N1 Transfusion of Nonautologous Red Blood Cells into Peripheral Vein, Percutaneous Approach (ICD-10-PCS; 2017-10-05)
PROC: 02HV33Z Insertion of Infusion Device into Superior Vena Cava, Percutaneous Approach (ICD-10-PCS; 2017-10-05)
PROC: B548ZZA Ultrasonography of Superior Vena Cava, Guidance (ICD-10-PCS; 2017-10-05)
PROC: 30233K1 Transfusion of Nonautologous Frozen Plasma into Peripheral Vein, Percutaneous Approach (ICD-10-PCS; 2017-10-05)
DX: A41.9 Sepsis, unspecified organism (principal); K35.3 Acute appendicitis with localized peritonitis; I46.9 Cardiac arrest, cause unspecified; J96.00 Acute respiratory failure, unspecified whether with hypoxia or hypercapnia; R65.21 Severe sepsis with septic shock; J69.0 Pneumonitis due to inhalation of food and vomit; G93.41 Metabolic encephalopathy; J90 Pleural effusion, not elsewhere classified; E87.2 Acidosis; K35.2 Acute appendicitis with generalized peritonitis; T17.520A Food in bronchus causing asphyxiation, initial encounter; K56.7 Ileus, unspecified; E87.0 Hyperosmolality and hypernatremia; N17.9 Acute kidney failure, unspecified; E78.5 Hyperlipidemia, unspecified; I10 Essential (primary) hypertension; I25.10 Atherosclerotic heart disease of native coronary artery without angina pectoris; Z95.1 Presence of aortocoronary bypass graft; F17.220 Nicotine dependence, chewing tobacco, uncomplicated; X58.XXXA Exposure to other specified factors, initial encounter
CPT/HCPCS: 31500; 36415; 36430; 51702; 71010; 71045; 71250; 74177; 80048; 80053; 81003; 81015; 82550; 82553; 82805; 83605; 83690; 83735; 84100; 84484; 85025; 85027; 85610; 85730; 86850; 86900; 86901; 87040; 87070; 87076; 87077; 87186; 87205; 88304; 92950; 93005; 94002; 94003; 94640; 94660; 94760; 96361; 96365; 96366; 96374; 96375; 99292; A4216; C1751; C9113; G8978-GP-CL; G8979-GP-CJ; J0131; J0171; J0360; J0696; J1650; J1720; J1940; J2060; J2248; J2270; J2405; J2543; J2704; J2997; J3010; J3411; J3475; J3480; J7042; J7050; J7070; J7620; P9016; P9047; P9048

== ENCOUNTER 2019-04-30 02:28 | Observation (INO) | payer MEDICARE, OTHER ==
[2019-04-30 03:12] LABS: #Basophils 0.1 thou/uL (0.0-0.2); #Eosinphils 0.7 thou/uL (0.0-0.7); #Lymphocytes 2.5 thou/uL (1.20-3.40); #Monocytes 0.6 thou/uL (0.11-0.59); #Neutrophils 5.5 thou/uL (1.40-6.50); %Eosinophils 7.6 % (0.0-10.0); %Lymphocytes 26.3 % (21.0-51.0); %Monocytes 6.8 % (0.0-10.0); %Neutrophils 58.3 % (42.0-75.0); Hemoglobin 13.7 g/dL (14.0-18.0); Mean Corpuscular Hemoglobin 30.4 pg (27.0-31.0); Mean Corpuscular Volume 95.1 fL (78.0-98.0); Mean Platelet Volume 8.7 fL (7.4-10.4); Platelet Count 235 thou/uL (130-400); RBC Distribution Width 12.5 % (11.5-14.5); Red Blood Cell (RBC) Count 4.52 mill/uL (4.70-6.10); White Blood Cell (WBC) Count 9.5 thou/uL (4.8-10.8)
[2019-04-30] MEDS ORDERED: Aspirin Chewable 81 MG TAB ONE (03:18)
[2019-04-30 03:20] LABS: ALT (SGPT) 19 U/L (8-55); AST (SGOT) 18 U/L (5-34); Albumin 4.2 g/dL (3.4-4.8); Alkaline Phosphatase 85 U/L (40-150); Anion Gap 15 mmol/L (10-20); BUN (Urea Nitrogen) 9 mg/dL (8.4-25.7); Bilirubin, Total 0.2 mg/dL (0.2-1.2); CK (CPK) 76 U/L (30-200); Calc. Creatinine Clearance 0 mL/min (70-130); Calcium 9.6 mg/dL (7.8-10.44); Carbon Dioxide 19 mmol/L (23-31); Chloride 108 mmol/L (98-107); Estimated GFR-MDRD 83; Globulin 3.1 g/dL (2.4-3.5); Glucose 94 mg/dL (80-115); Lipase 28 U/L (8-78); Potassium 3.9 mmol/L (3.5-5.1); Protein, Total 7.3 g/dL (5.8-8.1); Sodium 138 mmol/L (136-145)
[2019-04-30] MEDS ORDERED: Ondansetron PF 4 MG/2 ML Vial IVP PRN (06:47)
[2019-04-30] MEDS ORDERED: Ondansetron ODT 4 MG TAB SL PRN (06:47)
[2019-04-30] MEDS ORDERED: Acetaminophen 325 MG TAB PO PRN (06:47)
[2019-04-30 07:46] LABS: Troponin I Less than 0.010 ng/mL (< 0.028)
[2019-04-30] MEDS ORDERED: Nitroglycerin 0.4 MG TAB (25 Tab Bottle) SL PRN (08:13)
--- NOTE | 2019-04-30 08:47 | RAD ---
CHEST 1 VIEW: INDICATION: Chest pain, shortness of breath. COMPARISON: Prior exam dated 10/16/2018. FINDINGS: There is evidence of a right lower lobe collapse with shifting of the mediastinum to the right. The left lung is clear. Osseous structures reveal no acute abnormality. IMPRESSION: Right lower lobe collapse. Recommend CT evaluation for further characterization. CODE T POS: BH
[2019-04-30] MEDS ORDERED: Aspirin 325 MG TAB PO SCH (09:00)
[2019-04-30] MEDS ORDERED: Carvedilol 6.25 MG TAB PO SCH (09:00)
[2019-04-30] MEDS ORDERED: Amlodipine 10 MG TAB PO SCH (09:00)
[2019-04-30] MEDS ORDERED: Sodium Chloride 0.9% 10 ML ONE (09:35)
--- NOTE | 2019-04-30 11:16 | NM ---
CARDIAC SPECT: CLINICAL HISTORY: 63-year-old female with chest pain, coronary artery disease, CABG, hypertension, and dyslipidemia. TECHNIQUE: A myocardial perfusion scan was performed using the single isotope one day protocol with technetium-9 9m sestamibi. 11 mCi were injected intravenously for the rest exam followed by 31 mCi for the stress exam. Pharmacologic stress with Lexiscan was monitored and interpreted by Suzy Schmitz NP. FINDINGS: Homogeneous tracer distribution is seen in the myocardial segments on stress and rest images without fixed or reversible defects. GATED SPECT LVEF: 68%. WALL MOTION EXAM: Normal. IMPRESSION: Normal myocardial perfusion scan. POS: OFF
[2019-04-30 11:40] LABS: Troponin I Less than 0.010 ng/mL (< 0.028)
[2019-04-30 12:25] VITALS: BMI 27.1
--- NOTE | 2019-04-30 14:05 | CON ---
DATE OF CONSULTATION: 04/30/2019 REASON FOR CONSULTATION: Chest pain. HISTORY OF PRESENT ILLNESS: Mr. Deleon is a pleasant 63-year-old white gentleman, who comes to the hospital for chest pain. He was woken up in the middle of the night yesterday for substernal burning and he felt like a burning sensation on his chest that he thought was reflux. He states that he had the same pain when he needed his bypass surgery about 9 years ago, so he got really concerned. He got into his car and drove to the hospital emergency room. As he drove into the ER and he was placed in a room, he was given an aspirin and his pain improved and has been gone since. The total episode lasted about 30 minutes. Since he had his bypass, he had not had any issues with his heart. He does have reflux disease and takes [id number] medications for this. It sounds like it is Prilosec and he takes 2 tablets every morning. He has been chest pain free, otherwise. He had a stress test earlier today that showed no evidence of reversible ischemia and a normal LV function. PAST MEDICAL HISTORY: 1. Coronary artery disease. 2. Hypertension. 3. Hyperlipidemia. PAST SURGICAL HISTORY: 1. Coronary artery bypass grafting x5 about 9 years ago. 2. Had an open appendectomy and a drainage of pelvic abscess done in 2017 secondary to a ruptured appendix. SOCIAL HISTORY: Chews tobacco. Social alcohol use. No drug use. FAMILY HISTORY: Noncontributory. REVIEW OF SYSTEMS: A 12-point review of systems was done and was all negative unless stated in the history of present illness. OUTPATIENT MEDICATIONS: Include; 1. Pravastatin 40 mg at bedtime. 2. Levofloxacin. 3. Donepezil. 4. Carvedilol 12.5 mg b.i.d. 5. Aspirin 81 a day. 6. Amlodipine 10 mg a day. ALLERGIES: NO KNOWN DRUG ALLERGIES. PHYSICAL EXAMINATION: VITAL SIGNS: Temperature 97.8, pulse 58, respiratory rate 18, saturation 98% on room air, and blood pressure 112/61. GENERAL: Awake, alert, and oriented x3, in no distress. HEENT: Normocephalic, atraumatic. NECK: Supple. LUNGS: Clear. CARDIOVASCULAR: S1 and S2. No S3 or S4. No murmurs. ABDOMEN: Soft. Positive bowel sounds. EXTREMITIES: No edema. SKIN: Warm and dry. LABORATORY DATA: Laboratory work was reviewed. CBC with a white count of 9.5, hemoglobin of 13.7, hematocrit of 42, and platelet count of 235. Chemistries unremarkable. Troponin is negative x3. Lipase was 28. IMAGING DATA: Chest x-ray was reviewed. Nuclear stress test was reviewed. He has an EF of 68% with no reversible findings to suggest ischemia. ASSESSMENT: 1. Coronary artery disease. 2. Chest pain. 3. Gastroesophageal reflux disease. PLAN: 1. I would continue anti-reflux medications for now. 2. Symptoms are concerning for angina. Currently, he would like to be conservative with his care. We will plan on giving him isosorbide mononitrate at 30 mg tablets, just take half a tablet every day. Only half tablet as his blood pressure is normal and may drop and make him lightheaded or presyncopal. We will plan on sending him home today and he is stable for discharge and we will plan on following up with him in 1 month for re-evaluation. 3. If he continues to have chest pains, we will plan on doing a further risk stratification with a heart catheterization, otherwise follow up in the office. Thank you for letting me to participate in the care of your patient. We will sign off. Please call with any questions. Job ID: [id number]
[2019-04-30] MEDS ORDERED: Regadenoson 0.4 MG/5 ML SYRINGE ONE (15:28)
[2019-04-30 17:52] VITALS: BP 133/71; TEMP 97.7
[2019-04-30] MEDS ORDERED: Atorvastatin Calcium 10 MG TAB PO SCH (21:00)
--- NOTE | 2019-05-01 05:49 | DIS ---
DATE OF ADMISSION: 04/30/2019 DATE OF DISCHARGE: 04/30/2019 CHIEF COMPLAINT: Chest pain. HISTORY OF PRESENT ILLNESS: Patient is a 63-year-old male who woke out of a sound sleep around 1:00 a.m. with substernal chest pain similar to an indigestion sensation. However, it also felt as exactly as when he had a coronary artery bypass graft due to VT nine years previously. He felt short winded. He felt nauseated and it radiated up into his neck. He was not diaphoretic and it lasted about 30 to 40 minutes at which time he came to the emergency room for further evaluation. In the ER, his initial cardiac enzymes are unremarkable as is his EKG, but he has several risk factors including hypertension, dyslipidemia, general medical noncompliance, tobacco use, history of coronary artery disease with 2 stents. Due to this past history, it was decided to do a stress test and further evaluate him. PAST MEDICAL HISTORY: As indicated above, hypertension, hyperlipidemia, general medical noncompliance, and coronary artery disease. PAST SURGICAL HISTORY: Includes coronary artery bypass graft x2 vessels nine years ago, ruptured appendectomy with open closure two years ago. PSYCHIATRIC HISTORY: None. SOCIAL HISTORY: He uses tobacco by chewing. He also drinks up to 5 drinks per day. ALLERGIES: NO KNOWN DRUG ALLERGIES. MEDICATIONS: On admission; 1. 81 mg aspirin daily. 2. Pravastatin 40 mg at bedtime. 3. Amlodipine 10 mg daily. 4. Carvedilol 12.5 mg b.i.d. REVIEW OF SYSTEMS: CONSTITUTIONAL: He denies fever, chills, or fatigue. HEENT: Denies drainage or pain from eyes, ears, nose, or throat. RESPIRATORY: Denies shortness of breath or coughing. CARDIOVASCULAR: Denies palpitations, but is here for the substernal chest discomfort. GI: He has had nausea during the pain, but denies vomiting, diarrhea, or abdominal pain. : Denies pain with urination. Denies blood in urine or stool. MUSCULOSKELETAL: Denies any significant pain in his joints or muscles. SKIN: No new rashes or lesions. NEUROLOGICAL: Denies any headaches, blurred vision, hypesthesia, or areas of anesthesia. PHYSICAL EXAMINATION: At the time of admission, VITAL SIGNS: Blood pressure 146/78, pulse 66, respirations 18, and temperature 98.3. Pain scale on admission was 4/10. O2 saturation 99% on room air. GENERAL: This is an elderly male, alert, oriented, and cooperative. HEENT: Normocephalic and atraumatic. Pupils are equal, round, and reactive to light. Extraocular muscles are intact. TMs, nares, and pharynx are clear. NECK: Supple. Trachea midline. CHEST: Clear to auscultation. HEART: Regular rate and rhythm without murmur. ABDOMEN: Soft without hepatosplenomegaly. Nontender. : Deferred. EXTREMITIES: Without clubbing, cyanosis, or edema. Normal range of motion present. SKIN: Without acute rashes or lesions. NEUROLOGICAL: Cranial nerves are intact. Gait and cerebral function not tested. Sensory exam is intact. Mental status is clear. LABORATORY DATA: On admission showed WBCs 9.5, hemoglobin 13.7, hematocrit 42.9, and platelets are at 235. Sodium 138, potassium 3.9, chloride 108, and CO2 is 19. Liver enzymes normal. Lipase 28. Cardiac enzymes negative. Chest x-ray unremarkable. HOSPITAL COURSE: Patient was placed in a telemetry bed, where serial cardiac enzymes were performed. These all returned negative. Later that day, a stress test, nuclear medicine scan were performed that also failed to show any areas of ischemia. Later that day, Dr. Isaak Jacobsen came and evaluated the patient in consultation and he felt that his chest pain was noncardiac, possibly reflux and stated he was cleared to be discharged once a stress test returned negative. DISCHARGE DIAGNOSES: 1. Chest pain, probably noncardiac. 2. Probable gastroesophageal reflux disease. 3. Hypertension. 4. Dyslipidemia. PLAN: Patient will be discharged home. He will be continued on his usual medications. He will follow up with Dr. Schneider in one week at which time he will be reevaluated, potentially continued on a proton pump inhibitor. He is to follow up with Dr. Jacobsen in one month and sooner if his chest pain returns and is unresponsive to proton pump inhibitors. The time required to evaluate the patient, prepare the chart for discharge, including reconciliation of medication came to 30 minutes. He is to follow up with Dr. Schneider in 1 week as planned. Job ID: [id number]
[2019-05-01] MEDS ORDERED: Aspirin 325 MG TAB PO SCH (09:00)
[2019-05-01] MEDS ORDERED: Prevnar 13-Val Conj/PF 0.5 ML SYRINGE IM ONE (12:45)
== END 2019-04-30 17:53 | disposition home or self-care (01) ==
LOC: ERS 02:28 → 2NO 04:18
PROVIDERS: ADMIT Specialist; ATTEND Specialist
DX: R07.2 Precordial pain (principal); R11.0 Nausea; I10 Essential (primary) hypertension; E78.5 Hyperlipidemia, unspecified; F17.220 Nicotine dependence, chewing tobacco, uncomplicated; I25.10 Atherosclerotic heart disease of native coronary artery without angina pectoris; I25.2 Old myocardial infarction; Z79.82 Long term (current) use of aspirin; Z79.899 Other long term (current) drug therapy; Z91.14 Patient's other noncompliance with medication regimen; Z95.1 Presence of aortocoronary bypass graft
CPT/HCPCS: 71045; 78452; 80053; 82550; 83690; 84484 ×2; 85025; 93005; 93017; 94760; 99285; A9500; G0378 ×2; 36415; J2785

== ENCOUNTER 2019-05-22 06:52 | Outpatient (CLI) | payer MEDICARE ==
--- NOTE | 2019-05-22 09:14 | ULT ---
ABDOMINAL ULTRASOUND: History: Abdominal pain. Comparison: None. FINDINGS: Suboptimal evaluation of the aorta, pancreas, and IVC due to bowel gas. Suboptimal evaluation of the hepatic parenchyma. There is increased echogenicity in the liver which m ay be due to technical limitations versus hepatic steatosis versus hepatocellular disease. Limited ev aluation for hepatic masses and intrahepatic biliary dilatation. Right hepatic lobe measures 14.9 cm. Within the lumen of the gallbladder there are echogenic foci without shadowing. These foci are mobile and nonshadowing stones are favored. Gallbladder wall is not thickened. No pericholecystic fluid. Ne gative Elizabeth's sign. Suboptimal evaluation of the common bile ducts. Nonspecific echogenic focus in the left renal cortex may represent an intrarenal calculus. Bilaterall y no hydronephrosis. Both kidneys have a normal parenchymal echotexture. Left kidney measures 10.7 x 5.3 x 5.4 cm. Right kidney measures 5.2 x 5.2 x 9.6 cm. Spleen has a normal echotexture measuring 8.7 cm in maximum dimension. The main portal vein is patent with appropriate direction of flow. IMPRESSION: 1. No hydronephrosis. 2. Sonographic evidence of cholelithiasis without evidence cholecystitis. 3. Increased echogenicity of the liver which may be due to technical limitations, hepatosteatosis, ve rsus hepatocellular disease. If there is concern for hepatic masses, liver mass protocol CT can be pe rformed. POS: YADIRA
== END 2019-05-22 06:53 | disposition home or self-care (01) ==
LOC: BICULT 06:52
PROVIDERS: ATTEND Specialist
DX: R07.9 Chest pain, unspecified (principal); K80.20 Calculus of gallbladder without cholecystitis without obstruction
CPT/HCPCS: 76700

== ENCOUNTER 2019-06-12 07:03 | Day surgery (SDC) | payer MEDICARE ==
[2019-06-02 09:40] VITALS: BMI 27.6
[2019-06-12] MEDS ORDERED: cefOXitin 2 GM VIAL ONE (08:04)
[2019-06-12] MEDS ORDERED: Sodium Chloride 0.9% 100 ML ONE (08:04)
[2019-06-12] MEDS ORDERED: Bupivacaine/Epinephrine 0.25% 30 ML VIAL ONE (08:34)
[2019-06-12] MEDS ORDERED: Fentanyl 100 MCG/2 ML VIAL ONE ×2 (08:45→09:56)
[2019-06-12] MEDS ORDERED: SUGAMMADEX SODIUM 200 MG/2 ML VIAL ONE (09:44)
[2019-06-12] MEDS ORDERED: Ketorolac Tromethamine 30 MG/ML VIAL ONE (12:24)
[2019-06-12] MEDS ORDERED: Rocuronium Bromide 10 MG/ML (10ML VIAL) ONE (12:24)
[2019-06-12] MEDS ORDERED: PROPOFOL 200 MG/20 ML VIAL ONE (12:24)
[2019-06-12] MEDS ORDERED: Glycopyrrolate 0.2 MG/ML 5 ML SYRINGE ONE (12:24)
[2019-06-12] MEDS ORDERED: Lidocaine 1% PF 5 ML VIAL ONE (12:24)
[2019-06-12] MEDS ORDERED: Ondansetron PF 4 MG/2 ML Vial ONE (12:24)
--- NOTE | 2019-06-12 15:46 | OP ---
DATE OF PROCEDURE: 06/12/2019 PREOPERATIVE DIAGNOSIS: Symptomatic gallstones. POSTOPERATIVE DIAGNOSIS: Symptomatic gallstones. PROCEDURE: Laparoscopic cholecystectomy. ANESTHESIA: General. ESTIMATED BLOOD LOSS: Minimal. COMPLICATIONS: None. SPECIMEN: Gallbladder. FINDINGS: Chronic cholecystitis. PROCEDURE IN DETAIL: The patient was taken to the operating room and laid supine on the operating room table. After general anesthetic was obtained, the abdomen was prepped and draped in a sterile fashion. A curved incision was made below the umbilicus. Cautery was used to dissect down to the umbilical fascia. Umbilical fascia was incised and held up using a Ludin. The abdominal cavity was entered using a Nanci clamp. Holding stitch of Vicryl was placed on each side of the fascia. Bear trocar was placed. High-flow pneumoperitoneum was obtained. An upper midline 5 mm port and 2 right upper quadrant 5 mm ports were placed under direct camera visualization. The gallbladder was retracted from the gallbladder fossa. The peritoneum of the gallbladder was opened anteriorly and posteriorly. The critical view triangle was seen showing only the cystic duct and cystic artery branching from medial to lateral. There were no other branching structures. Two clips were placed proximally on the cystic duct and one laterally. It was cut using laparoscopic scissors. The cystic artery was taken in the same way. Electrocautery was then used to dissect the gallbladder out of the gallbladder fossa. The gallbladder was placed in an Endo catch bag and brought out through the Bear. There was no bleeding or bile in the liver bed. The cystic duct stump and cystic artery stump were intact, without evidence of extravasation or bleeding. All port sites were infiltrated using local anesthesia. All ports were removed under camera visualization. Pneumoperitoneum was let down. The Vicryl was used to close the fascial defect below the umbilicus. All incisions were irrigated and closed using 4-0 Monocryl and Dermabond. The patient was en route to Recovery in stable condition. All instrument counts, needle counts and lap counts were correct. Job ID: [id number]
== END 2019-06-12 12:30 | disposition home or self-care (01) ==
LOC: SDC 07:03
PROVIDERS: ATTEND Surgery
PROC: 0FT44ZZ Resection of Gallbladder, Percutaneous Endoscopic Approach (ICD-10-PCS; principal; 2019-06-12)
DX: K80.10 Calculus of gallbladder with chronic cholecystitis without obstruction (principal); I10 Essential (primary) hypertension; F17.200 Nicotine dependence, unspecified, uncomplicated; Z79.899 Other long term (current) drug therapy
CPT/HCPCS: 88304; J0694; J3010; J3490

== ENCOUNTER 2020-01-30 07:09 | Day surgery (SDC) | payer MEDICARE ==
[2020-01-29 12:52] VITALS: BMI 28.2
[2020-01-30 08:09] LABS: #Basophils 0.1 thou/uL (0.0-0.2); #Eosinphils 0.7 thou/uL (0.0-0.7); #Lymphocytes 2.3 thou/uL (1.20-3.40); #Neutrophils 6.8 thou/uL (1.40-6.50); %Basophils 0.6 % (0.0-1.0); %Lymphocytes 21.3 % (21.0-51.0); %Monocytes 9.3 % (0.0-10.0); %Neutrophils 62.8 % (42.0-75.0); Hemoglobin 13.6 g/dL (14.0-18.0); Mean Corpuscular HGB CONC 32.8 g/dL (32.0-36.0); Mean Corpuscular Hemoglobin 31.8 pg (27.0-31.0); Mean Platelet Volume 8.5 fL (7.4-10.4); Platelet Count 222 thou/uL (130-400); Red Blood Cell (RBC) Count 4.29 mill/uL (4.70-6.10); White Blood Cell (WBC) Count 10.9 thou/uL (4.8-10.8)
[2020-01-30 08:16] LABS: INR-International Normal Ratio 0.9; PTT 26.6 SEC (22.9-36.1); Prothrombin Time 12.2 SEC (12.0-14.7)
[2020-01-30 08:33] LABS: ALT (SGPT) 22 U/L (8-55); AST (SGOT) 19 U/L (5-34); Albumin 4.3 g/dL (3.4-4.8); Alkaline Phosphatase 84 U/L (40-110); Anion Gap 14 mmol/L (10-20); BUN (Urea Nitrogen) 11 mg/dL (8.4-25.7); Bilirubin, Total 0.2 mg/dL (0.2-1.2); Calc. Creatinine Clearance 70 mL/min (70-130); Carbon Dioxide 23 mmol/L (23-31); Cardiac Risk 4.2 (Less than 4.5); Chloride 105 mmol/L (98-107); Cholesterol 184 mg/dl (< 200 Desired); Estimated GFR-MDRD 62; Globulin 2.8 g/dL (2.4-3.5); Glucose 92 mg/dL (80-115); HDL Cholesterol 44 mg/dL (>60 Neg Risk); LDL Cholesterol, Calculated 96 mg/dL; Potassium 3.7 mmol/L (3.5-5.1); Protein, Total 7.1 g/dL (5.8-8.1); Sodium 138 mmol/L (136-145); Triglycerides 222 mg/dL (Less than 150)
[2020-01-30] MEDS ORDERED: Iopamidol 370 76% 100 ML VIAL ONE (09:32)
[2020-01-30] MEDS ORDERED: Midazolam HCl 2 mg/2 ml Vial ONE (09:48)
[2020-01-30] MEDS ORDERED: Fentanyl 100 MCG/2 ML VIAL ONE (09:48)
--- NOTE | 2020-01-31 09:49 | EKG ---
Test Reason : PREOP Blood Pressure : / mmHG Vent. Rate : 049 BPM Atrial Rate : 049 BPM P-R Int : 176 ms QRS Dur : 096 ms QT Int : 472 ms P-R-T Axes : 042 053 053 degrees QTc Int : 426 ms Marked sinus bradycardia Abnormal ECG When compared with ECG of 30-APR-2019 02:36, No significant change was found Confirmed by DR. Surinder STALLWORTH ([id number]) on 01/31/2020 9:49:09 AM Referred By: DANETTE Confirmed By:DR. Surinder STALLWORTH
== END 2020-01-30 13:14 | disposition home or self-care (01) ==
LOC: CCL 07:09
PROVIDERS: ATTEND Internal Medicine Cardiovascular Disease
PROC: 4A023N7 Measurement of Cardiac Sampling and Pressure, Left Heart, Percutaneous Approach (ICD-10-PCS; principal; 2020-01-30)
PROC: B2111ZZ Fluoroscopy of Multiple Coronary Arteries using Low Osmolar Contrast (ICD-10-PCS; 2020-01-30)
PROC: B2181ZZ Fluoroscopy of Left Internal Mammary Bypass Graft using Low Osmolar Contrast (ICD-10-PCS; 2020-01-30)
PROC: B2131ZZ Fluoroscopy of Multiple Coronary Artery Bypass Grafts using Low Osmolar Contrast (ICD-10-PCS; 2020-01-30)
DX: I25.10 Atherosclerotic heart disease of native coronary artery without angina pectoris (principal); I25.810 Atherosclerosis of coronary artery bypass graft(s) without angina pectoris; I25.82 Chronic total occlusion of coronary artery; I10 Essential (primary) hypertension; I25.2 Old myocardial infarction; E78.00 Pure hypercholesterolemia, unspecified; Z79.82 Long term (current) use of aspirin; Z79.899 Other long term (current) drug therapy; Z87.891 Personal history of nicotine dependence
CPT/HCPCS: 36415; 80053; 80061; 85025; 85610; 85730; 93005; 93010; 93459; 99152; 99153; C1769; J1644; J2250; J3010; Q9967

== ENCOUNTER 2021-08-19 10:20 | Outpatient (CLI) | payer MEDICARE | END 2021-08-19 10:21 | disposition home or self-care (01) | LOC: BICRAD 10:20 | PROVIDERS: ATTEND Specialist | DX: M25.572 Pain in left ankle and joints of left foot (principal) ==

== ENCOUNTER 2023-10-24 22:23 | Emergency (ER) | payer MEDICARE, OTHER | END 2023-10-25 01:08 | disposition home or self-care (01) | LOC: ERS 22:23 | DX: H61.21 Impacted cerumen, right ear (principal); J32.0 Chronic maxillary sinusitis; J32.2 Chronic ethmoidal sinusitis; S01.01XD Laceration without foreign body of scalp, subsequent encounter; I10 Essential (primary) hypertension; F17.220 Nicotine dependence, chewing tobacco, uncomplicated | CPT/HCPCS: 99283 ==

== ENCOUNTER 2024-03-05 18:48 | Inpatient (IN) | payer MEDICARE ==
[2024-03-05] MEDS ORDERED: Nitroglycerin 2% Ointment 1 INCH/1 GM Packet ONE (19:46)
[2024-03-05 19:58] LABS: #Basophils 0.03 10x3/uL (0.0-0.2); %Basophils 0.2 % (0.0-1.0); %Eosinophils 1.2 % (0.0-10.0); %Lymphocytes 10.6 % (21.0-51.0); %Monocytes 9.3 % (0.0-10.0); %Neutrophils 78.4 % (42.0-75.0); Hematocrit 37.2 % (42.0-52.0); Hemoglobin 12.5 g/dL (14.0-18.0); Mean Corpuscular HGB CONC 33.6 g/dL (32.0-36.0); Mean Corpuscular Hemoglobin 31.8 pg (27.0-31.0); Mean Corpuscular Volume 94.7 fL (78.0-98.0); Mean Platelet Volume 10.7 fL (7.4-10.4); Platelet Count 170 10x3/uL (130-400); RBC Distribution Width 13.6 % (11.5-14.5); Red Blood Cell (RBC) Count 3.93 mill/uL (4.70-6.10)
[2024-03-05 20:14] LABS: ALT (SGPT) 33 U/L (8-55); AST (SGOT) 27 U/L (5-34); Albumin 3.5 g/dL (3.4-4.8); Alkaline Phosphatase 91 U/L (40-110); Anion Gap 17 mmol/L (10-20); BUN (Urea Nitrogen) 16 mg/dL (8.4-25.7); Bilirubin, Total 0.3 mg/dL (0.2-1.2); Calc. Creatinine Clearance 0 mL/min (70-130); Calcium 10.1 mg/dL (7.8-10.44); Carbon Dioxide 22 mmol/L (23-31); Chloride 106 mmol/L (98-107); Estimated GFR 85; Globulin 3.2 g/dL (2.4-3.5); Glucose 112 mg/dL (80-115); Lipase 27 U/L (8-78); Potassium 3.5 mmol/L (3.5-5.1); Protein, Total 6.7 g/dL (5.8-8.1); Sodium 141 mmol/L (136-145)
[2024-03-05 20:19] LABS: Troponin I Less than 0.010 ng/mL (< 0.028)
[2024-03-05] MEDS ORDERED: Pantoprazole 40 MG VIAL ONE (21:23)
[2024-03-05] MEDS ORDERED: Ondansetron PF 4 MG/2 ML Vial ONE (21:23)
[2024-03-05] MEDS ORDERED: Acetaminophen 325 MG TAB PO PRN (22:59)
[2024-03-05] MEDS ORDERED: Acetaminophen 650 MG Suppository PR PRN (22:59)
[2024-03-05] MEDS ORDERED: Ondansetron ODT 4 MG TAB PO PRN (22:59)
[2024-03-05] MEDS ORDERED: Ondansetron PF 4 MG/2 ML Vial IVP PRN (22:59)
[2024-03-05 23:23] VITALS: BMI 90.4
[2024-03-05] MEDS: Lactated Ringer's 1,000 ML IV SCH (23:24)
[2024-03-05] MEDS: Pantoprazole 80 MG in Sodium Chloride 0.9% 100 ML IVPB SCH (23:30)
[2024-03-06] MEDS: Folic Acid 1 MG TAB PO SCH (00:33)
[2024-03-06] MEDS: Thiamine HCl 200 MG/2 ML VIAL SLOW IVP SCH (00:33)
[2024-03-06 00:35] LABS: Troponin I Less than 0.010 ng/mL (< 0.028)
[2024-03-06 05:12] LABS: #Basophils 0.04 10x3/uL (0.0-0.2); %Basophils 0.3 % (0.0-1.0); %Eosinophils 0.4 % (0.0-10.0); %Lymphocytes 9.6 % (21.0-51.0); %Monocytes 9.9 % (0.0-10.0); %Neutrophils 79.4 % (42.0-75.0); Hematocrit 35.9 % (42.0-52.0); Hemoglobin 11.9 g/dL (14.0-18.0); Mean Corpuscular HGB CONC 33.1 g/dL (32.0-36.0); Mean Corpuscular Hemoglobin 31.8 pg (27.0-31.0); Mean Platelet Volume 10.7 fL (7.4-10.4); Platelet Count 166 10x3/uL (130-400); RBC Distribution Width 13.7 % (11.5-14.5); Red Blood Cell (RBC) Count 3.74 mill/uL (4.70-6.10)
[2024-03-06 05:28] LABS: INR-International Normal Ratio 1.1; Prothrombin Time 13.7 sec (12.0-14.7)
[2024-03-06 05:32] LABS: ALT (SGPT) 29 U/L (8-55); AST (SGOT) 19 U/L (5-34); Albumin 3.2 g/dL (3.4-4.8); Alkaline Phosphatase 82 U/L (40-110); Anion Gap 14 mmol/L (10-20); BUN (Urea Nitrogen) 19 mg/dL (8.4-25.7); Bilirubin, Total 0.5 mg/dL (0.2-1.2); Calc. Creatinine Clearance 40 mL/min (70-130); Calcium 9.1 mg/dL (7.8-10.44); Carbon Dioxide 23 mmol/L (23-31); Chloride 109 mmol/L (98-107); Estimated GFR 92; Globulin 2.7 g/dL (2.4-3.5); Glucose 88 mg/dL (80-115); Potassium 3.9 mmol/L (3.5-5.1); Protein, Total 5.9 g/dL (5.8-8.1); Sodium 142 mmol/L (136-145)
[2024-03-06 05:35] LABS: Troponin I Less than 0.010 ng/mL (< 0.028)
[2024-03-06] MEDS: Pantoprazole 80 MG, Admixture Fee 1 EACH in Sodium Chloride 0.9% 100 ML IVPB SCH (08:11)
[2024-03-07 04:17] LABS: #Basophils 0.04 10x3/uL (0.0-0.2); %Basophils 0.4 % (0.0-1.0); %Eosinophils 1.8 % (0.0-10.0); %Lymphocytes 13.2 % (21.0-51.0); %Monocytes 9.9 % (0.0-10.0); %Neutrophils 74.3 % (42.0-75.0); Hematocrit 37.1 % (42.0-52.0); Hemoglobin 11.9 g/dL (14.0-18.0); Mean Corpuscular HGB CONC 32.1 g/dL (32.0-36.0); Mean Corpuscular Hemoglobin 30.8 pg (27.0-31.0); Mean Corpuscular Volume 96.1 fL (78.0-98.0); Mean Platelet Volume 10.3 fL (7.4-10.4); Platelet Count 155 10x3/uL (130-400); Red Blood Cell (RBC) Count 3.86 mill/uL (4.70-6.10)
[2024-03-07 04:42] LABS: Anion Gap 14 mmol/L (10-20); BUN (Urea Nitrogen) 9 mg/dL (8.4-25.7); Calc. Creatinine Clearance 39 mL/min (70-130); Calcium 8.6 mg/dL (7.8-10.44); Carbon Dioxide 25 mmol/L (23-31); Chloride 107 mmol/L (98-107); Estimated GFR 89; Glucose 97 mg/dL (80-115); Potassium 3.8 mmol/L (3.5-5.1); Sodium 142 mmol/L (136-145)
[2024-03-07] MEDS ORDERED: PROPOFOL 20 ML ONE ×2 (10:31→11:41)
[2024-03-07] MEDS ORDERED: Lidocaine 1% PF 5 ML VIAL ONE (10:31)
[2024-03-07] MEDS ORDERED: Midazolam HCl 2 mg/2 ml Vial ONE (11:33)
[2024-03-07] MEDS: Pantoprazole 40 MG VIAL IVP SCH (20:02)
[2024-03-08 06:06] LABS: #Basophils 0.04 10x3/uL (0.0-0.2); %Basophils 0.3 % (0.0-1.0); %Eosinophils 2.3 % (0.0-10.0); %Lymphocytes 13.5 % (21.0-51.0); %Monocytes 10.2 % (0.0-10.0); %Neutrophils 73.4 % (42.0-75.0); Hematocrit 37.2 % (42.0-52.0); Hemoglobin 12.1 g/dL (14.0-18.0); Mean Corpuscular HGB CONC 32.5 g/dL (32.0-36.0); Mean Corpuscular Hemoglobin 31.4 pg (27.0-31.0); Mean Corpuscular Volume 96.6 fL (78.0-98.0); Mean Platelet Volume 11.1 fL (7.4-10.4); Platelet Count 152 10x3/uL (130-400); Red Blood Cell (RBC) Count 3.85 mill/uL (4.70-6.10)
[2024-03-08 06:28] LABS: Anion Gap 14 mmol/L (10-20); BUN (Urea Nitrogen) 11 mg/dL (8.4-25.7); Calc. Creatinine Clearance 35 mL/min (70-130); Calcium 8.5 mg/dL (7.8-10.44); Carbon Dioxide 22 mmol/L (23-31); Chloride 108 mmol/L (98-107); Estimated GFR 79; Glucose 99 mg/dL (80-115); Potassium 3.7 mmol/L (3.5-5.1); Sodium 140 mmol/L (136-145)
[2024-03-08 08:23] VITALS: BP 135/76; TEMP 98.2
== END 2024-03-08 11:10 | disposition home or self-care (01) | DRG 370 ==
LOC: ERS 18:48 → 2NO 21:43 → OBSVTOIN 03-07 16:44
PROVIDERS: ADMIT Student in an Organized Health Care Education/Training Program; ATTEND Internal Medicine
PROC: 0DJ08ZZ Inspection of Upper Intestinal Tract, Via Natural or Artificial Opening Endoscopic (ICD-10-PCS; principal; 2024-03-07)
DX: K21.01 Gastro-esophageal reflux disease with esophagitis, with bleeding (principal); K44.9 Diaphragmatic hernia without obstruction or gangrene; E88.09 Other disorders of plasma-protein metabolism, not elsewhere classified; E78.5 Hyperlipidemia, unspecified; M10.9 Gout, unspecified; I11.9 Hypertensive heart disease without heart failure; I25.10 Atherosclerotic heart disease of native coronary artery without angina pectoris; F17.220 Nicotine dependence, chewing tobacco, uncomplicated; Z95.1 Presence of aortocoronary bypass graft; Z90.49 Acquired absence of other specified parts of digestive tract; Z95.5 Presence of coronary angioplasty implant and graft; Z79.82 Long term (current) use of aspirin; Z79.899 Other long term (current) drug therapy; Z79.1 Long term (current) use of non-steroidal anti-inflammatories (NSAID); Z91.048 Other nonmedicinal substance allergy status
CPT/HCPCS: 36415; 71045; 80048; 80053; 82274; 83690; 83880; 84484; 85025; 85610; 93005; 96375; 96376; C9113; G0378; J2250; J2405; J2704; J3411; J3490; J7120

== ENCOUNTER 2024-03-28 09:44 | Outpatient (CLI) | payer MEDICARE ==
[2024-03-28] MEDS ORDERED: E-Z-HD 98% W/W 340GM BOT (x-ray ONLY) ONE (10:02)
[2024-03-28] MEDS ORDERED: Barium Sulfate 96% 176 GM BOT (xray ONLY) ONE (10:02)
== END 2024-03-28 09:45 | disposition home or self-care (01) ==
LOC: RAD 09:44
PROVIDERS: ATTEND Surgery
DX: K44.9 Diaphragmatic hernia without obstruction or gangrene (principal)
CPT/HCPCS: 74220

== ENCOUNTER 2024-04-07 08:56 | Outpatient (CLI) | payer MEDICARE ==
[2024-04-07 10:26] LABS: #Basophils 0.05 10x3/uL (0.0-0.2); #Eosinphils 0.52 10x3/uL (0.0-0.5); #Monocytes 0.82 10x3/uL (0.0-1.1); #Neutrophils 8.07 10x3/uL (1.5-8.4); %Basophils 0.4 % (0.0-2.0); %Eosinophils 4.6 % (0.0-6.0); %Lymphocytes 16.7 % (18.0-47.0); %Monocytes 7.2 % (0.0-10.0); %Neutrophils 70.7 % (40.0-75.0); Hematocrit 37.3 % (38.8-50.0); Hemoglobin 12.5 g/dL (13.5-17.5); Mean Corpuscular HGB CONC 33.5 g/dL (32.0-36.0); Mean Corpuscular Hemoglobin 31.8 pg (27.0-33.0); Mean Corpuscular Volume 94.9 fL (81.2-95.1); Mean Platelet Volume 10.9 fL (7.4-10.4); Platelet Count 194 10x3/uL (150-450); RBC Distribution Width 13.6 % (11.5-14.5); Red Blood Cell (RBC) Count 3.93 10x6/uL (4.32-5.72); White Blood Cell (WBC) Count 11.4 10x3/uL (3.5-10.5)
[2024-04-07 10:51] LABS: Anion Gap 13 mmol/L (10-20); BUN (Urea Nitrogen) 12 mg/dL (8.4-25.7); Calc. Creatinine Clearance 0 mL/min (70-130); Carbon Dioxide 22 mmol/L (23-31); Chloride 110 mmol/L (98-107); Estimated GFR 83; Glucose 90 mg/dL (80-115); Potassium 4.2 mmol/L (3.5-5.1); Sodium 141 mmol/L (136-145)
== END 2024-04-07 08:57 | disposition home or self-care (01) ==
LOC: LABBT 08:56
PROVIDERS: ATTEND Surgery
DX: Z01.818 Encounter for other preprocedural examination (principal); K44.9 Diaphragmatic hernia without obstruction or gangrene
CPT/HCPCS: 80048; 85025; 93005; 93010

== ENCOUNTER 2024-09-12 07:04 | Outpatient (CLI) | payer MEDICARE ==
[2024-09-12] MEDS ORDERED: Barium Sulfate 96% 176 GM BOT (xray ONLY) ONE (07:40)
[2024-09-12] MEDS ORDERED: E-Z-HD 98% W/W 340GM BOT (x-ray ONLY) ONE (07:40)
== END 2024-09-12 07:05 | disposition home or self-care (01) ==
LOC: RAD 07:04
PROVIDERS: ATTEND Surgery
DX: K21.00 Gastro-esophageal reflux disease with esophagitis, without bleeding (principal); K44.9 Diaphragmatic hernia without obstruction or gangrene; K22.4 Dyskinesia of esophagus
CPT/HCPCS: 74220